=== PATIENT | female | born 1970 | race Caucasian/White ===

== ENCOUNTER 2017-05-10 13:32 | Emergency (ER) | payer OTHER ==
[~2017-05-10] VITALS: Ht 172.7 cm; Wt 90.0 kg
[2017-05-10 13:41] VITALS: BP 138/99; PULSE 108; RESP 16; TEMP 98.5; O2SAT 95
[2017-05-10 15:19] VITALS: BP 159/100; PULSE 101; RESP 20; O2SAT 97
--- NOTE | 2017-05-10 15:57 | PD ---
HPI Chief Complaint: Back/ Neck Pain or Injury Time Seen by Provider: 15:04 Travel History International Travel<30 days: No Contact w/Intl Traveler<30days: No Traveled to known affect area: No History of Present Illness HPI 47-year-old female presents to the emergency department via EMS with complaint of mid to lower back pain that she woke up with this morning. She has chronic mid to lower back pain and has had worsening of back pain since July with laminectomy in September. Said she woke up this morning in excruciating pain. Denies any recent injury. Reports radiation of pain to her left rib cage and this is normal for exacerbation of her pain. She denies chest pain, shortness of breath, abdominal pain. Report vomiting twice today. Denies encopresis, incontinence, saddle anesthesias. Reports normal urine and stool. Denies dysuria. Reports being ambulatory. Denies IV drug use or cancer. Rates pain 10/10. Usually takes Flexeril and Motrin for her chronic back pain, but ran out yesterday. Pain is constant. Worse with movement. Nothing makes it better. Describes it as "feels like someone shoved a janeth of her ass and along the spine." Her neurosurgeons are Dr. Carrera and Dr. Langston in [place]. She has no primary care provider. Allergies to Band-Aids. History of chronic back pain, kidney stones, VT, stroke, hypertension. Has no other medical complaints. No other modifying factors or associated signs and symptoms. PFSH Past Medical History Cerebrovascular Accident: Yes Herniated Disk: Yes Musculoskeletal: Yes (FUSED DISCS & JANETH IN HER SPINE) Myocardial Infarction: Yes Tetanus Vaccination: Unknown ?: Not Social History Alcohol Use: No Tobacco Use: No Substance Use: No Allergies-Medications (Allergen,Severity, Reaction): Uncoded Allergies: BANDAID (Allergy, Intermediate, Irritation, 05/10/17) STATES SKIN EMACERATES(?) UNDER THE GLUE OF THE BANDAID Reported Meds & Prescriptions Reported Meds & Active Scripts Active Flexeril (Cyclobenzaprine HCl) 10 Mg Tab 10 Mg PO TID Ibuprofen 800 Mg Tab 800 Mg PO Q6HR PRN Review of Systems Except as stated in HPI: all other systems reviewed are Neg Physical Exam Narrative GENERAL: Well-nourished, well-developed patient, in no acute distress ; afebrile, nontoxic-appearing SKIN: Warm and dry. Surgical scar noted to midline thoracic spine. Scabbed wounds noted to the right thoracic region of the back and the patient states it is from a heating pad, which she says she is thrown away. No signs of infection. HEAD: Atraumatic. Normocephalic. EYES: Pupils equal and round. No scleral icterus. No injection or drainage. ENT: Mucosa pink and moist. Airway patent. NECK: Trachea midline. CARDIOVASCULAR: Regular rate. RESPIRATORY: No accessory muscle use. GASTROINTESTINAL: Obese. MUSCULOSKELETAL: Bilateral lower extremities supple and non-tense with 2+ pedal pulses and sensory intact; with full range of motion and 5/5 strength. 2 + DTRs bilaterally. Active dorsiflexion and extension of bilateral feet. Bilateral straight leg raise is positive for low back pain. Ambulatory in room with guarded gait. Sitting up in bed at 90. No obvious deformities. No clubbing. No cyanosis. No edema. BACK: Midline point tenderness on palpation of the thoracic spine. No obvious deformities. NEUROLOGICAL: Awake and alert. Oriented 3. No obvious cranial nerve deficits. Motor grossly within normal limits. Normal speech. Moves all extremities. 5/5 strength to all extremities. Sensory intact. PSYCHIATRIC: Appropriate mood and affect; insight and judgment normal. Data Data Last Documented VS Vital Signs Date Time Temp Pulse Resp B/P (MAP) Pulse Ox O2 Delivery O2 Flow Rate FiO2 05/10/17 15:19 101 20 159/100 (119) 97 05/10/17 13:41 98.5 Orders Orders Electrocardiogram (05/10/17 15:20) Ketorolac Inj (Toradol Inj) (05/10/17 16:00) Orphenadrine Inj (Norflex Inj) (05/10/17 16:00) Ed Discharge Order (05/10/17 17:01) [facility] Medical Decision Making Medical Screen Exam Complete: Yes Emergency Medical Condition: Yes Medical Record Reviewed: Yes Differential Diagnosis Acute exacerbation of chronic back pain, chronic back pain, muscle spasms of back Narrative Course 47-year-old female with chronic mid and low back pain. She arrived via EMS. She woke up this morning with increased pain. Denies new or recent injury. Says she ran out of her Flexeril yesterday and feels like her back is spasming and radiating to her left rib cage area, which is normal for her muscle spasm exacerbations. She is neurologically intact. She was able to get up at the side of the bed and ambulate with a guarded gait. She has history of spinal surgery and there is a scar to her midline thoracic spine. Patient has a neurosurgeon in [place]. She has been told to follow-up with pain management. I discussed the patient with Dr. Costello and he agrees with my plan of care. Toradol and Norflex ordered. 1650: On reexamination patient reports improvement in the back pain. Rates pain 6/10. Flexeril and ibuprofen prescribed for home. Instructed patient to follow-up with pain management. Instructed patient to follow up with primary care provider. Patient verbalizes understanding and agreement with treatment plan. Patient is medically cleared and stable for discharge. Discussed reasons to return to the emergency department. Patient agrees with treatment plan. The patients vital signs are stable and the patient is stable for outpatient follow-up and treatment. Patient discharged home, stable and in no acute distress. Diagnosis Primary Impression: Chronic mid back pain Qualified Codes: M54.6 - Pain in thoracic spine; G89.29 - Other chronic pain Additional Impressions: Chronic low back pain Qualified Codes: M54.5 - Low back pain; G89.29 - Other chronic pain Muscle spasm of back Referrals: Pain Management Primary Care Physician Patient Instructions: Chronic Back Pain (ED), General Instructions, Muscle Spasm (ED) Additional Instructions: Tylenol or ibuprofen as directed and as needed for pain Flexeril as prescribed and as needed for muscle spasms Heating pad and/or ice to affected area to reduce pain Avoid aggravating activities; increase activity as tolerated Follow-up with primary care provider Return to emergency department immediately with worsening of symptoms Med/Other Pt SpecificInfo: Prescription(s) given Scripts Cyclobenzaprine (Flexeril) 10 Mg Tab 10 MG PO TID for Muscle Spasm, #30 TAB 0 Refills Prov: Swati Lopez 05/10/17 Ibuprofen (Ibuprofen) 800 Mg Tab 800 MG PO Q6HR Y for PAIN, #30 TAB 0 Refills Prov: Swati Lopez 05/10/17 Disposition: 01 DISCHARGE HOME Condition: Stable Swati Lopez May 10, 2017 15:57
[2017-05-10] MEDS ORDERED: ORPHENADRINE INJ 60 MG/2 ML AMP IM ONE (16:00)
[2017-05-10] MEDS ORDERED: KETOROLAC TROMETHAMINE 60 MG/2 ML (IM) VIAL IM ONE (16:00)
[2017-05-10] MEDS ORDERED: IBUP1TAB7 PO (17:00)
[2017-05-10] MEDS ORDERED: CYCL10TA PO (17:00)
[2017-05-10 17:25] VITALS: BP 157/98
--- NOTE | 2017-05-11 12:14 | EKG ---
Date Performed: 05/10/2017 Time Performed: 15:20:22 PTAGE: 47 years EKG: SINUS TACHYCARDIA POSSIBLE LEFT ATRIAL ENLARGEMENT POSSIBLE LEFT VENTRICULAR HYPERTROPHY AB NORMAL ECG NO PREVIOUS TRACING DOCTOR: Aleksandr Reza Interpretating Date/Time 05/11/2017 12:12:50
== END 2017-05-10 19:36 | disposition home or self-care (01) ==
LOC: NEPD 13:32 → NEDAMB 19:36
DX: M54.6 Pain in thoracic spine (principal); M54.5 Low back pain; G89.29 Other chronic pain; M62.830 Muscle spasm of back; R00.0 Tachycardia, unspecified; R94.31 Abnormal electrocardiogram [ECG] [EKG]; I10 Essential (primary) hypertension; I25.2 Old myocardial infarction; Z86.73 Personal history of transient ischemic attack (TIA), and cerebral infarction without residual deficits
CPT/HCPCS: 93005; 96372; 99283; J1885; J2360

== ENCOUNTER 2017-05-21 00:50 | Observation (INO) | payer OTHER ==
[2017-05-21] VITALS (9 sets, daily range): BP systolic 118–171; BP diastolic 68–111; PULSE 86–105; RESP 16–18; TEMP 97.8–98.5; O2SAT 91–95
[~2017-05-21] VITALS: Ht 162.6 cm; Wt 92.7 kg
[~2017-05-21 00:50] MED LIST: IBUP1TAB7 PO
[2017-05-21] MEDS ORDERED: SENNOSIDES 8.6 MG TAB PO PRN (02:30)
[2017-05-21] MEDS ORDERED: ONDANSETRON HCL 4 MG/2 ML VIAL IVP PRN (02:30)
[2017-05-21] MEDS ORDERED: SODIUM CHLORIDE 0.9% FLUSH 10 ML FLUSH IV FLUSH PRN (02:30)
[2017-05-21] MEDS ORDERED: NALOXONE HCL 0.4 MG/ML AMP IV PUSH PRN (02:30)
[2017-05-21] MEDS ORDERED: MAGNESIUM HYDROXIDE SUSP 30 ML CUP PO PRN (02:30)
[2017-05-21] MEDS ORDERED: Vancomycin Consult Pharmacy 1 EA OTHER SCH (02:30)
[2017-05-21] MEDS ORDERED: BISACODYL 10 MG SUPP RECTAL PRN (02:30)
[2017-05-21] MEDS ORDERED: ACETAMINOPHEN 325 MG TAB PO PRN (02:30)
[2017-05-21] MEDS ORDERED: LACTULOSE SYRUP 20 GM/30 ML CUP PO PRN (02:30)
[2017-05-21] MEDS ORDERED: PIPERACIL-TAZO 3.375 GM PREMIX 50 ML IV SCH (03:00)
--- NOTE | 2017-05-21 04:11 | HHI.HP ---
[facility] Ad[facility] Diagnosis Diagnoses: Chief Complaint: back pain Travel History International Travel<30 Days: No Contact w/Intl Traveler <30 Da: No History of Present Illness 47 y/o female with a history of HTN, heart murmer, kidney stones, and chronic back pain presented to the ED with Increasing pain since back surgery in September and a fall at home. Today she was getting out of bed today and she slid to the ground and landed on her but and felt severe pain up her spine. She states the mid back pain is constant, sharp, 7/10 with radiation up her spine, with numbness in both legs, movement makes it worse, pain medication is helping some. She states she had a 101.1 fever at home, denies chills. Recent illness of a cough 2 weeks, no dental infections noted, UTI 2 weeks ago which required antibiotics. Denies chest pain, sob or urinary/ bowel incontinence. Dr. Langston and Dr. Tesfaye- surgeons Review of Systems Except as stated in HPI: all other systems reviewed are Neg Past Family Social History Past Medical History HTN heart murmer kidney stones chronic back pain Past Surgical History Rods in back Right knee arthroscopy Thoracic back surgery Tonsillectomy Reported Medications Reported Meds & Active Scripts Active Ibuprofen 800 Mg Tab 800 Mg PO Q6HR PRN Allergies: Coded Allergies: cyclobenzaprine (Verified Allergy, Severe, Hallucinations, 05/20/17) Uncoded Allergies: BANDAID (Allergy, Intermediate, Irritation, 05/10/17) STATES SKIN EMACERATES(?) UNDER THE GLUE OF THE BANDAID Active Ordered Medications Current Medications Medications (Trade) Dose Ordered Sig/Pricila Route Start Time Stop Time Status Last Admin (NS Flush) 2 ml UNSCH PRN IV FLUSH 05/21/17 02:30 (NS Flush) 2 ml BID IV FLUSH 05/21/17 09:00 (Tylenol) 650 mg Q4H PRN PO 05/21/17 02:30 (Zofran Inj) 4 mg Q6H PRN IVP 05/21/17 02:30 (Narcan Inj) 0.4 mg UNSCH PRN IV PUSH 05/21/17 02:30 (Libia-Colace) 1 tab BID PO 05/21/17 09:00 (Milk Of Magnesia Liq) 30 ml Q12H PRN PO 05/21/17 02:30 (Senokot) 17.2 mg Q12H PRN PO 05/21/17 02:30 (Dulcolax Supp) 10 mg DAILY PRN RECTAL 05/21/17 02:30 (Lactulose Liq) 30 ml DAILY PRN PO 05/21/17 02:30 Pharmacy Profile Note 0 ml @ 0 mls/hr UNSCH OTHER 05/21/17 02:30 UNV Piperacillin Sod/ Tazobactam Sod 50 ml @ 100 mls/hr Q6H IV 05/21/17 03:00 (Morphine Inj) 2 mg Q3H PRN IV PUSH 05/21/17 02:30 Family History Mom: Heart disease, Dad: Heart disease, DM, Social History Denies any Tobacco, alcohol or illicit drug use Physical Exam Physical Exam GENERAL: This is a well-nourished, well-developed patient, in moderate amount of back pain. SKIN: No rashes, ecchymoses or lesions. Cool and dry. HEAD: Atraumatic. Normocephalic. EYES: Pupils equal round and reactive. Extraocular motions intact. No scleral icterus. No injection or drainage. ENT: Nose without bleeding, purulent drainage or septal hematoma. Airway patent. NECK: Trachea midline. No JVD or lymphadenopathy. CARDIOVASCULAR: Regular rate and rhythm without murmurs, gallops, or rubs. RESPIRATORY: Decreased breath sounds in bases, expiratory wheezing GASTROINTESTINAL: Abdomen soft, non-tender, nondistended. No guarding. MUSCULOSKELETAL: Extremities without clubbing, cyanosis, or edema. mid/ lower back tenderness. No calf tenderness. NEUROLOGICAL: Awake and alert. 2 out of 5 muscle strength in bilateral lower extremities. Normal speech. Caprini VTE Risk Assessment Caprini VTE Risk Assessment: Mod/High Risk (score >= 2) Caprini Risk Assessment Model Point Value = 1 Point Value = 2 Point Value = 3 Point Value = 5 Age 41-60 Minor surgery BMI > 25 kg/m2 Swollen legs Varicose veins or History of unexplained or recurrent spontaneous Oral contraceptives or hormone replacement Sepsis (< 1 month) Serious lung disease, including pneumonia (< 1 month) Abnormal pulmonary function Acute myocardial infarction Congestive heart failure (< 1 month) History of inflammatory bowel disease Medical patient at bed rest Age 61-74 Arthroscopic surgery Major open surgery (> 45 min) Laparoscopic surgery (> 45 min) Malignancy Confined to bed (> 72 hours) Immobilizing plaster cast Central venous access Age >= 75 History of VTE Family history of VTE Factor V Leiden Prothrombin [id number] Lupus anticoagulant Anticardiolipin antibodies Elevated serum homocysteine Heparin-induced thrombocytopenia Other congenital or acquired thrombophilia Stroke (< 1 month) Elective arthroplasty Hip, pelvis, or leg fracture Acute spinal cord injury (< 1 month) Prophylaxis Regimen Total Risk Factor Score Risk Level Prophylaxis Regimen 0-1 Low Early ambulation 2 Moderate Order ONE of the following: *Sequential Compression Device (SCD) *Heparin 5000 units SQ BID 3-4 Higher Order ONE of the following medications: *Heparin 5000 units SQ TID *Enoxaparin/Lovenox 40 mg SQ daily (WT < 150 kg, CrCl > 30 mL/min) *Enoxaparin/Lovenox 30 mg SQ daily (WT < 150 kg, CrCl > 10-29 mL/min) *Enoxaparin/Lovenox 30 mg SQ BID (WT < 150 kg, CrCl > 30 mL/min) AND/OR *Sequential Compression Device (SCD) 5 or more Highest Order ONE of the following medications: *Heparin 5000 units SQ TID (Preferred with Epidurals) *Enoxaparin/Lovenox 40 mg SQ daily (WT < 150 kg, CrCl > 30 mL/min) *Enoxaparin/Lovenox 30 mg SQ daily (WT < 150 kg, CrCl > 10-29 mL/min) *Enoxaparin/Lovenox 30 mg SQ BID (WT < 150 kg, CrCl > 30 mL/min) AND *Sequential Compression Device (SCD) Assessment and Plan Problem List: (1) Epidural abscess ICD Code: G06.2 - Extradural and subdural abscess, unspecified Status: Acute (2) UTI (urinary tract infection) ICD Code: N39.0 - Urinary tract infection, site not specified Status: Acute (3) Pneumonia ICD Code: J18.9 - Pneumonia, unspecified organism Status: Acute Assessment and Plan 47 y/o female with a history of HTN, heart murmer, kidney stones, and chronic back pain presented to the ED with Increasing pain since back surgery in September and a fall at home. Possible epidural abscess, chronic back pain, s/p fall Abdomen CT reviewed and shows Postsurgical changes in the lower thoracic spine status post corpectomy and fusion. Extensive paravertebral soft tissue swelling is noted in this region the findings are concerning for acute infection. ESR 47, CRP 20 -MRI T spine ordered to r/o abscess -Pain management with IV morphine -PT eval and treat -Vancomycin and cefepime -Blood cultures ordered -Consult neurosurgery if needed once MRI results -Cont. home muscle relaxer Pneumonia Chest x ray reviewed and shows bilateral base consolidation -IV antibiotics as above -Duonebs scheduled -Incentive spirometer ordered UTI UA shows moderate leukocyte esterase -Cont antibiotics as above -IVF for hydration -Urine culture pending Hypertension, chronic, unstable, not on any home medications -Suspect pain related, Vasotec prn -Monitor vitals DVT prophylaxis: SCDs Discussed Condition With Patient and ED Liliane Bucio May 21, 2017 04:11
[2017-05-21] MEDS: MORPHINE SULFATE 2 MG/ML SYRINGE IV PUSH PRN ×2 (04:36→11:14)
[2017-05-21] MEDS ORDERED: METH500T3 PO (04:40)
[2017-05-21] MEDS ORDERED: VANCOMYCIN INJ 1,250 MG in SODIUM CHLOR 0.9% 250 ML INJ 250 ML IV ONE (05:00)
[2017-05-21] MEDS: CEFEPIME INJ 2,000 MG in SODIUM CHLORIDE 0.9% INJ 100 ML IV SCH ×2 (06:00→17:11)
[2017-05-21 06:23] LABS: AUTOMATED NEUTROPHIL # 5.7 TH/MM3 (1.8-7.7); BASOPHIL % 0.2 % (0.0-2.0); HEMATOCRIT 29.8 % (35.0-46.0); HEMOGLOBIN 9.7 GM/DL (11.6-15.3); LYMPH % 12.5 % (9.0-44.0); LYMPHOCYTE # 0.8 TH/MM3 (1.0-4.8); MEAN CELL VOLUME 73.1 FL (80.0-100.0); MEAN CORPUSCULAR HEMOGLOBIN 23.8 PG (27.0-34.0); MEAN CORPUSCULAR HGB CONC 32.5 % (32.0-36.0); MEAN PLATELET VOLUME 7.2 FL (7.0-11.0); MONOCYTE # 0.1 TH/MM3 (0-0.9); NEUT % 85.3 % (16.0-70.0); PLATELET COUNT 524 TH/MM3 (150-450); RED BLOOD COUNT 4.07 MIL/MM3 (4.00-5.30); RED CELL DISTRIBUTION WIDTH 16.6 % (11.6-17.2); WHITE BLOOD COUNT 6.7 TH/MM3 (4.0-11.0)
[2017-05-21 06:46] LABS: BICARBONATE 30.5 MEQ/L (21.0-32.0); CALCIUM 9.1 MG/DL (8.5-10.1); CREATININE 0.66 MG/DL (0.50-1.00)
[2017-05-21] MEDS: RESP: ALBUTEROL 2.5 MG/IPRATROPIUM 0.5 MG NEB (SCH) NEB ×5 (07:33→23:38)
[2017-05-21] MEDS: DOCUSATE SODIUM 50 MG/SENNA 8.6 MG TAB PO SCH ×2 (09:00→21:26)
[2017-05-21] MEDS: METHOCARBAMOL 500 MG TAB PO SCH ×3 (11:12→18:10)
[2017-05-21] MEDS: SODIUM CHLORIDE 0.9% FLUSH 10 ML FLUSH IV FLUSH SCH ×2 (11:13→21:26)
[2017-05-21] MEDS: ACETAMINOPHEN/HYDROcodone 325 MG/7.5 MG TAB PO PRN (14:21)
[2017-05-21] MEDS: guaiFENesin/DEXTROMETHORPHAN 200 MG/20 MG/10 ML CUP PO PRN (15:06)
--- NOTE | 2017-05-21 15:13 | RADRPT ---
EXAM DATE/TIME: 05/21/2017 13:09 [place] COMPARISON: SPINE THORACIC AP/LAT/SW (3VW), May 20, 2017, 15:44. INDICATIONS : Abscess. CONTRAST: 16 cc Omniscan (gadodiamide) IV MEDICAL HISTORY : Stroke Myocardial infarction. SURGICAL HISTORY : Fusion, thoracic. ENCOUNTER: Initial ACUITY: 3 day PAIN SCORE: 7/10 LOCATION: t-spine TECHNIQUE: Multiplanar multisequence MRI of the thoracic spine was performed. FINDINGS: Patient is status post transpedicular fixation and fusion T5-T12 with cage from about T8 to about the T11. This hardware is causing extensive artifact. There is no cord compression. There is no extra -axial fluid present. Minimal induration is present the operative site without defined fluid collect ion. There is minimal increased signal within the thoracic cord at T7-T8. CONCLUSION: Extensive artifact, no defined abscess. Paulino Bonilla MD FACR on May 21, 2017 at 15:06 Board Certified Radiologist. This report was verified electronically.
[2017-05-21] MEDS ORDERED: GADODIAMIDE PF 287 MG/ML 20 ML VIAL (for RAD MRI) IVCONTRAST ONE (15:18)
[2017-05-21] MEDS: VANCOMYCIN INJ 1,250 MG in SODIUM CHLOR 0.9% 250 ML INJ 250 ML IV SCH (18:10)
--- NOTE | 2017-05-21 20:11 | HHI.PR ---
Addendum to Inpatient Note Addendum Reason: Additional Documentation Additional Information The patient is awake and alert. States breathing status is improving. Denies wheezing. Denies fevers or chills. Lung exam shows decreased bilateral breath sounds. No rales or crackles auscultated. MRI of the thoracic spine showed extensive artifact but no defined abscess. Continue IV antibiotics for community-acquired pneumonia. Continue duo nebs and continue to provide supplemental oxygen to keep oxygen saturation more than 92%. Blood cultures pending. Urine culture showed mixed dalton concordant with contamination. Blood pressure stable. Joo Covington MD May 21, 2017 20:11
[2017-05-21] MEDS: hydrOXYzine HCL 10 MG TAB PO PRN (23:07)
[2017-05-22] VITALS (9 sets, daily range): BP systolic 125–164; BP diastolic 82–97; PULSE 76–114; RESP 17–19; TEMP 97.5–100.5; O2SAT 92–97
[2017-05-22] MEDS: ACETAMINOPHEN/HYDROcodone 325 MG/5 MG TAB PO PRN ×2 (00:12→05:03)
[2017-05-22] MEDS: guaiFENesin/DEXTROMETHORPHAN 200 MG/20 MG/10 ML CUP PO PRN (01:26)
[2017-05-22] MEDS: RESP: ALBUTEROL 2.5 MG/IPRATROPIUM 0.5 MG NEB (SCH) NEB ×6 (04:21→23:28)
[2017-05-22] MEDS ORDERED: PHARMACY ORDERED LAB ONE (04:45)
[2017-05-22] MEDS: CEFEPIME INJ 2,000 MG in SODIUM CHLORIDE 0.9% INJ 100 ML IV SCH ×2 (04:57→20:10)
[2017-05-22 06:23] LABS: CREATININE 0.85 MG/DL (0.50-1.00)
[2017-05-22 06:24] LABS: VANCOMYCIN TROUGH 16.5 MCG/ML (5.0-10.0)
[2017-05-22] MEDS: VANCOMYCIN INJ 1,250 MG in SODIUM CHLOR 0.9% 250 ML INJ 250 ML IV SCH ×2 (06:32→06:43)
[2017-05-22] MEDS: DOCUSATE SODIUM 50 MG/SENNA 8.6 MG TAB PO SCH ×2 (09:00→21:48)
[2017-05-22] MEDS: SODIUM CHLORIDE 0.9% FLUSH 10 ML FLUSH IV FLUSH SCH ×2 (09:00→21:48)
[2017-05-22] MEDS: ACETAMINOPHEN/HYDROcodone 325 MG/7.5 MG TAB PO PRN ×3 (09:13→20:09)
[2017-05-22] MEDS: METHOCARBAMOL 500 MG TAB PO SCH ×3 (09:13→20:09)
[2017-05-22 12:11] LABS: AST (GOT) 17 U/L (15-37); BICARBONATE 25.5 MEQ/L (21.0-32.0); CALCIUM 8.7 MG/DL (8.5-10.1); CHLORIDE 99 MEQ/L (98-107); CREATININE 0.73 MG/DL (0.50-1.00); GLOMERULAR FILTRATION RATE 85 ML/MIN (>89); GLUCOSE,RANDOM 83 MG/DL (74-106); MAGNESIUM 1.9 MG/DL (1.5-2.5); SODIUM (NA) 134 MEQ/L (136-145)
[2017-05-22 12:12] LABS: ALT (GPT) 10 U/L (10-53); AUTOMATED NEUTROPHIL # 7.6 TH/MM3 (1.8-7.7); BASOPHIL # 0.1 TH/MM3 (0-0.2); BASOPHIL % 0.7 % (0.0-2.0); BLOOD UREA NITROGEN 11 MG/DL (7-18); EOSINOPHIL # 0.2 TH/MM3 (0-0.4); EOSINOPHIL % 1.7 % (0.0-4.0); HEMATOCRIT 30.6 % (35.0-46.0); HEMOGLOBIN 9.6 GM/DL (11.6-15.3); LYMPH % 23.2 % (9.0-44.0); LYMPHOCYTE # 2.6 TH/MM3 (1.0-4.8); MEAN CORPUSCULAR HEMOGLOBIN 23.2 PG (27.0-34.0); MEAN CORPUSCULAR HGB CONC 31.4 % (32.0-36.0); MEAN PLATELET VOLUME 7.7 FL (7.0-11.0); MONO % 6.4 % (0.0-8.0); MONOCYTE # 0.7 TH/MM3 (0-0.9); PHOSPHORUS 2.9 MG/DL (2.5-4.9); PLATELET COUNT 469 TH/MM3 (150-450); RED BLOOD COUNT 4.13 MIL/MM3 (4.00-5.30); RED CELL DISTRIBUTION WIDTH 16.6 % (11.6-17.2); WHITE BLOOD COUNT 11.2 TH/MM3 (4.0-11.0)
[2017-05-22 12:14] LABS: ALKALINE PHOSPHATASE 87 U/L (45-117); TOTAL BILIRUBIN ADULT 0.2 MG/DL (0.2-1.0); TOTAL PROTEIN 7.3 GM/DL (6.4-8.2)
[2017-05-22] MEDS: hydrOXYzine HCL 10 MG TAB PO PRN ×2 (14:12→22:12)
--- NOTE | 2017-05-22 16:51 | HHI.PR ---
Subjective Remarks Still feels sob but respiratoty status much improved Objective Vitals Vital Signs Date Time Temp Pulse Resp B/P (MAP) Pulse Ox O2 Delivery O2 Flow Rate FiO2 05/22/17 16:00 98.2 106 19 149/97 (114) 93 05/22/17 13:05 97 05/22/17 12:00 98.6 89 17 132/89 (103) 92 05/22/17 08:00 97.5 76 18 152/94 (113) 93 05/22/17 04:49 98.0 91 18 125/82 (96) 93 05/22/17 03:12 18 05/22/17 03:01 94 05/22/17 00:00 100 05/21/17 23:49 98.3 99 18 118/68 (85) 92 05/21/17 19:44 94 I/O 05/21/17 05/21/17 05/21/17 05/22/17 05/22/17 05/22/17 07:00 15:00 23:00 07:00 15:00 23:00 Intake Total 100 ml Balance 100 ml Intake IV Total 100 ml Result Diagram: 05/22/17 1059 05/22/17 1059 Imaging Last Impressions Thoracic Spine MRI 05/21/17 0000 Signed Impressions: Service Date/Time: Sunday, May 21, 2017 13:09 - CONCLUSION: Extensive artifact, no defined abscess. Paulino Bonilla MD FACR Medications and IVs Current Medications Medications (Trade) Dose Ordered Sig/Pricila Route Start Time Stop Time Status Last Admin (NS Flush) 2 ml UNSCH PRN IV FLUSH 05/21/17 02:30 (NS Flush) 2 ml BID IV FLUSH 05/21/17 09:00 05/21/17 21:26 (Tylenol) 650 mg Q4H PRN PO 05/21/17 02:30 (Zofran Inj) 4 mg Q6H PRN IVP 05/21/17 02:30 (Narcan Inj) 0.4 mg UNSCH PRN IV PUSH 05/21/17 02:30 (Libia-Colace) 1 tab BID PO 05/21/17 09:00 (Milk Of Magnesia Liq) 30 ml Q12H PRN PO 05/21/17 02:30 (Senokot) 17.2 mg Q12H PRN PO 05/21/17 02:30 (Dulcolax Supp) 10 mg DAILY PRN RECTAL 05/21/17 02:30 (Lactulose Liq) 30 ml DAILY PRN PO 05/21/17 02:30 Pharmacy Profile Note 0 ml @ 0 mls/hr UNSCH OTHER 05/21/17 02:30 (Morphine Inj) 2 mg Q3H PRN IV PUSH 05/21/17 02:30 05/21/17 11:14 (Duoneb Neb) 1 ampule Q4HR NEB NEB 05/21/17 08:00 05/22/17 11:26 Cefepime HCl 2000 mg/Sodium Chloride 100 ml @ 200 mls/hr Q12H IV 05/21/17 06:00 05/22/17 04:57 (Robaxin) 500 mg TID PO 05/21/17 09:00 05/22/17 14:13 (Vasotec Inj) 1.25 mg Q6H PRN IV PUSH 05/21/17 05:00 Vancomycin HCl 1250 mg/Sodium Chloride 262.5 ml @ 250 mls/hr Q12H IV 05/21/17 17:00 05/22/17 06:32 (Cascade 5-325 Mg) 1 tab Q4H PRN PO 05/21/17 11:45 05/22/17 05:03 (Cascade 7.5-325 Mg) 1 tab Q4H PRN PO 05/21/17 11:45 05/22/17 15:38 (Atarax) 10 mg Q8H PRN PO 05/21/17 11:45 05/22/17 14:12 (Robitussin Dm 200-20 Mg/10 ml Liq) 10 ml Q6H PRN PO 05/21/17 14:15 05/22/17 01:26 Miscellaneous Information SPECIFIC LAB TO BE DRAWN:VANCOMYCIN TROUGH DATE TO... ONCE ONCE .XX 05/24/17 04:45 05/24/17 04:46 A/P Problem List: (1) Epidural abscess ICD Code: G06.2 - Extradural and subdural abscess, unspecified Status: Acute (2) UTI (urinary tract infection) ICD Code: N39.0 - Urinary tract infection, site not specified Status: Acute (3) Pneumonia ICD Code: J18.9 - Pneumonia, unspecified organism Status: Acute Assessment and Plan 47 y/o female with a history of HTN, heart murmer, kidney stones, and chronic back pain presented to the ED with Increasing pain since back surgery in September and a fall at home. Chronic back pain - Spinal abscess r/o by MRI Abdomen CT reviewed and shows Postsurgical changes in the lower thoracic spine status post corpectomy and fusion. Extensive paravertebral soft tissue swelling is noted in this region the findings are concerning for acute infection. ESR 47, CRP 20 -MRI T spine ordered to r/o abscess -Pain management with IV morphine -PT eval and treat -Vancomycin and cefepime -Blood cultures ordered -Consult neurosurgery if needed once MRI results -Cont. home muscle relaxer 05/22 Pt recommends SNF. Pain controlled. Pneumonia Chest x ray reviewed and shows bilateral base consolidation -IV antibiotics as above -Duonebs scheduled -Incentive spirometer ordered 05/22 On room air. Will order a respiratory walk test. UTI UA shows moderate leukocyte esterase -Cont antibiotics as above -IVF for hydration -Urine culture cw contamination. UTI ruled out. Hypertension, chronic, unstable, not on any home medications -Suspect pain related, Vasotec prn -Monitor vitals DVT prophylaxis: Joo Soliz MD May 22, 2017 16:51
[2017-05-23] VITALS (10 sets, daily range): BP systolic 124–162; BP diastolic 81–99; PULSE 93–103; RESP 18–20; TEMP 98.1–98.6; O2SAT 90–98
[2017-05-23] MEDS: RESP: ALBUTEROL 2.5 MG/IPRATROPIUM 0.5 MG NEB (SCH) NEB ×5 (03:20→19:36)
[2017-05-23] MEDS: ACETAMINOPHEN/HYDROcodone 325 MG/7.5 MG TAB PO PRN ×4 (04:14→21:29)
[2017-05-23] MEDS: VANCOMYCIN INJ 1,250 MG in SODIUM CHLOR 0.9% 250 ML INJ 250 ML IV SCH (04:17)
[2017-05-23] MEDS: CEFEPIME INJ 2,000 MG in SODIUM CHLORIDE 0.9% INJ 100 ML IV SCH ×2 (06:39→19:04)
[2017-05-23] MEDS: DOCUSATE SODIUM 50 MG/SENNA 8.6 MG TAB PO SCH ×2 (09:00→21:29)
[2017-05-23] MEDS: METHOCARBAMOL 500 MG TAB PO SCH ×3 (09:45→19:04)
[2017-05-23] MEDS: SODIUM CHLORIDE 0.9% FLUSH 10 ML FLUSH IV FLUSH SCH ×2 (09:45→21:29)
[2017-05-23] MEDS: ENALAPRILAT 1.25 MG/ML VIAL IV PUSH PRN (11:20)
[2017-05-23 12:57] LABS: HEMATOCRIT 30.8 % (35.0-46.0); HEMOGLOBIN 9.9 GM/DL (11.6-15.3); MEAN CELL VOLUME 74.2 FL (80.0-100.0); MEAN CORPUSCULAR HEMOGLOBIN 23.9 PG (27.0-34.0); MEAN CORPUSCULAR HGB CONC 32.2 % (32.0-36.0); MEAN PLATELET VOLUME 7.5 FL (7.0-11.0); PLATELET COUNT 557 TH/MM3 (150-450); RED BLOOD COUNT 4.16 MIL/MM3 (4.00-5.30); RED CELL DISTRIBUTION WIDTH 16.6 % (11.6-17.2); WHITE BLOOD COUNT 7.7 TH/MM3 (4.0-11.0)
[2017-05-23 13:17] LABS: BICARBONATE 28.9 MEQ/L (21.0-32.0); CALCIUM 8.6 MG/DL (8.5-10.1); CREATININE 0.58 MG/DL (0.50-1.00)
[2017-05-23] MEDS ORDERED: POTASSIUM CHLORIDE 10 MEQ CONTROLLED RELEASE TAB PO ONE (14:15)
--- NOTE | 2017-05-23 16:21 | HHI.PR ---
Subjective Remarks Patient states still coughing frequently. Denies fevers or chills On room air K low Objective Vitals Vital Signs Date Time Temp Pulse Resp B/P (MAP) Pulse Ox O2 Delivery O2 Flow Rate FiO2 05/23/17 15:28 136/94 (108) 05/23/17 15:21 98.6 99 18 93 05/23/17 10:55 98.1 103 20 162/99 (120) 95 05/23/17 07:59 93 05/23/17 07:48 98.5 94 18 136/81 (99) 94 05/23/17 05:15 15 05/23/17 05:06 98.1 94 18 138/84 (102) 90 05/23/17 04:00 93 05/23/17 00:53 98.4 98 18 135/91 (106) 98 05/22/17 23:29 93 21 05/22/17 20:03 100.5 114 18 164/96 (118) 94 I/O 05/22/17 05/22/17 05/22/17 05/23/17 05/23/17 05/23/17 06:59 14:59 22:59 06:59 14:59 22:59 Intake Total 100 ml 900 ml Balance 100 ml 900 ml Intake Oral 900 ml IV Total 100 ml # Voids 3 Result Diagram: 05/23/17 1237 05/23/17 1237 Imaging Last Impressions Thoracic Spine MRI 05/21/17 0000 Signed Impressions: Service Date/Time: Sunday, May 21, 2017 13:09 - CONCLUSION: Extensive artifact, no defined abscess. Paulino Bonilla MD FACR Objective Remarks AAox3 nad Lungs w decreased breath sounds at the bases otherwise clear to auscultation S1S2 RRR abdomen soft, non tender, non distended no calf edema or pain. Medications and IVs Current Medications Medications (Trade) Dose Ordered Sig/Pricila Route Start Time Stop Time Status Last Admin (NS Flush) 2 ml UNSCH PRN IV FLUSH 05/21/17 02:30 (NS Flush) 2 ml BID IV FLUSH 05/21/17 09:00 05/23/17 09:45 (Tylenol) 650 mg Q4H PRN PO 05/21/17 02:30 (Zofran Inj) 4 mg Q6H PRN IVP 05/21/17 02:30 (Narcan Inj) 0.4 mg UNSCH PRN IV PUSH 05/21/17 02:30 ([place]-Colace) 1 tab BID PO 05/21/17 09:00 (Milk Of Magnesia Liq) 30 ml Q12H PRN PO 05/21/17 02:30 (Senokot) 17.2 mg Q12H PRN PO 05/21/17 02:30 (Dulcolax Supp) 10 mg DAILY PRN RECTAL 05/21/17 02:30 (Lactulose Liq) 30 ml DAILY PRN PO 05/21/17 02:30 (Morphine Inj) 2 mg Q3H PRN IV PUSH 05/21/17 02:30 05/21/17 11:14 (Duoneb Neb) 1 ampule Q4HR NEB NEB 05/21/17 08:00 05/23/17 07:57 Cefepime HCl 2000 mg/Sodium Chloride 100 ml @ 200 mls/hr Q12H IV 05/21/17 06:00 05/23/17 06:39 (Robaxin) 500 mg TID PO 05/21/17 09:00 05/23/17 13:57 (Vasotec Inj) 1.25 mg Q6H PRN IV PUSH 05/21/17 05:00 05/23/17 11:20 ([place] 5-325 Mg) 1 tab Q4H PRN PO 05/21/17 11:45 05/22/17 05:03 ([place] 7.5-325 Mg) 1 tab Q4H PRN PO 05/21/17 11:45 05/23/17 14:32 (Atarax) 10 mg Q8H PRN PO 05/21/17 11:45 05/22/17 22:12 (Robitussin Dm 200-20 Mg/10 ml Liq) 10 ml Q6H PRN PO 05/21/17 14:15 05/22/17 01:26 A/P Problem List: (1) Epidural abscess ICD Code: G06.2 - Extradural and subdural abscess, unspecified Status: Acute (2) UTI (urinary tract infection) ICD Code: N39.0 - Urinary tract infection, site not specified Status: Acute (3) Pneumonia ICD Code: J18.9 - Pneumonia, unspecified organism Status: Acute Assessment and Plan 47 y/o female with a history of HTN, heart murmer, kidney stones, and chronic back pain presented to the ED with Increasing pain since back surgery in September and a fall at home. Chronic back pain - Spinal abscess r/o by MRI Abdomen CT reviewed and shows Postsurgical changes in the lower thoracic spine status post corpectomy and fusion. Extensive paravertebral soft tissue swelling is noted in this region the findings are concerning for acute infection. ESR 47, CRP 20 -MRI T spine ordered -spinal abscess ruled out. -Pain management with IV morphine -PT eval and treat -Started initially on vancomycin and cefepime -Blood cultures ordered -Consult neurosurgery if needed once MRI results -Cont. home muscle relaxer -Pt recommends SNF. Pain controlled. DC vancomycin. Pneumonia Chest x ray reviewed and shows bilateral base consolidation -IV antibiotics as above -Duonebs scheduled -Incentive spirometer ordered 05/22 On room air. Will order a respiratory walk test. 05/23 patient does not require oxygen at home. Continue IV cefepime, discontinue IV vancomycin. UTI UA shows moderate leukocyte esterase -Cont antibiotics as above -IVF for hydration -Urine culture cw contamination. UTI ruled out. Hypertension, chronic, unstable, not on any home medications -Suspect pain related, Vasotec prn -Monitor vitals Generalized weakness -Physical therapy consulted. Risk of therapy recommends sniffed placement, however does not have a payer source. -Will order PT twice a day during the weekends. DVT prophylaxis: SCDs Discharge Planning PT recommended SNF placement. Discharge pending clinical improvement. Joo Covington MD May 23, 2017 16:21
[2017-05-23] MEDS: hydrOXYzine HCL 10 MG TAB PO PRN (21:28)
[2017-05-24] VITALS (10 sets, daily range): BP systolic 134–225; BP diastolic 90–139; PULSE 96–113; RESP 16–20; TEMP 98–100; O2SAT 90–98
[2017-05-24] MEDS: RESP: ALBUTEROL 2.5 MG/IPRATROPIUM 0.5 MG NEB (SCH) NEB ×8 (01:01→23:34)
[2017-05-24] MEDS ORDERED: PHARMACY ORDERED LAB ONE (04:45)
[2017-05-24] MEDS: CEFEPIME INJ 2,000 MG in SODIUM CHLORIDE 0.9% INJ 100 ML IV SCH ×2 (06:32→18:54)
[2017-05-24] MEDS: SODIUM CHLORIDE 0.9% FLUSH 10 ML FLUSH IV FLUSH SCH ×2 (08:51→20:34)
[2017-05-24] MEDS: METHOCARBAMOL 500 MG TAB PO SCH ×3 (08:51→18:55)
[2017-05-24] MEDS: DOCUSATE SODIUM 50 MG/SENNA 8.6 MG TAB PO SCH ×2 (08:51→20:34)
[2017-05-24 10:09] LABS: CREATININE 0.58 MG/DL (0.50-1.00)
[2017-05-24] MEDS: ACETAMINOPHEN/HYDROcodone 325 MG/7.5 MG TAB PO PRN ×4 (10:35→22:41)
--- NOTE | 2017-05-24 11:37 | HHI.PR ---
Subjective Remarks had a low grade fever earlier. still with some cough but with no sob. has some mid-back pain. Objective Vitals Vital Signs Date Time Temp Pulse Resp B/P (MAP) Pulse Ox O2 Delivery O2 Flow Rate FiO2 05/24/17 10:31 98.4 112 16 173/95 (121) 98 157/92 (113) 05/24/17 04:05 98 05/24/17 03:20 100.0 100 18 159/93 (115) 96 05/24/17 00:03 98.1 96 18 134/90 (105) 91 05/23/17 22:29 15 05/23/17 19:34 93 21 05/23/17 19:33 98.4 101 19 124/93 (103) 93 05/23/17 15:28 136/94 (108) 05/23/17 15:21 98.6 99 18 93 I/O 05/23/17 05/23/17 05/23/17 05/24/17 05/24/17 05/24/17 07:00 15:00 23:00 07:00 15:00 23:00 # Voids 1 Result Diagram: 05/23/17 1237 05/24/17 0903 Imaging Last Impressions Thoracic Spine MRI 05/21/17 0000 Signed Impressions: Service Date/Time: Sunday, May 21, 2017 13:09 - CONCLUSION: Extensive artifact, no defined abscess. Paulino Bonilla MD FACR Objective Remarks GENERAL: This is a well-nourished, well-developed patient, in no apparent distress. CARDIOVASCULAR: Regular rate and regular rhythm without murmurs, gallops, or rubs. RESPIRATORY: Clear to auscultation. Breath sounds equal bilaterally. No wheezes , rales, or rhonchi. GASTROINTESTINAL: Abdomen soft, non-tender, nondistended. Normal, active bowel sounds MUSCULOSKELETAL: Extremities without clubbing, cyanosis, or edema. NEURO: Alert & Oriented x4 to person, place, time, situation. Moves all ext x4 Medications and IVs Inpatient Medications Acetaminophen (Tylenol) 650 mg Q4H PRN PO TEMP > 100.4; Start 05/21/17 at 02:30 Acetaminophen/ Hydrocodone Bitart ([place] 5-325 Mg) 1 tab Q4H PRN PO Pain 4-6 Last administered on 05/22/17 05:03; Start 05/21/17 at 11:45 Acetaminophen/ Hydrocodone Bitart ([place] 7.5-325 Mg) 1 tab Q4H PRN PO Pain 7- 10 Last administered on 05/24/17 10:35; Start 05/21/17 at 11:45 Albuterol/ Ipratropium (Duoneb Neb) 1 ampule Q4HR NEB NEB Last administered on 05/24/17 01:01; Start 05/21/17 at 08:00 Bisacodyl (Dulcolax Supp) 10 mg DAILY PRN RECTAL SEVERE CONSITIPATION; Start at 02:30 Cefepime HCl 2000 mg/Sodium Chloride 100 ml @ 200 mls/hr Q12H IV Last administered on 05/24/17 06:32; Start 05/21/17 at 06:00 Enalaprilat (Vasotec Inj) 1.25 mg Q6H PRN IV PUSH SBP>160, DBP>90 Last administered on 05/23/17at 11:20; Start 05/21/17 at 05:00 Guaifenesin/ Dextromethorphan (Robitussin Dm 200-20 Mg/10 ml Liq) 10 ml Q6H PRN PO COUGH Last administered on 05/22/17 01:26; Start 05/21/17 at 14:15 Hydroxyzine HCl (Atarax) 10 mg Q8H PRN PO Anxiety Last administered on 21:28; Start 05/21/17 at 11:45 Lactulose (Lactulose Liq) 30 ml DAILY PRN PO SEVERE CONSITIPATION; Start at 02:30 Magnesium Hydroxide (Milk Of Magnesia Liq) 30 ml Q12H PRN PO Mild constipation ; Start 05/21/17 at 02:30 Methocarbamol (Robaxin) 500 mg TID PO Last administered on 05/24/17at 08:51; Start 05/21/17 at 09:00 Miscellaneous Information SPECIFIC LAB TO BE DRAWN:VANCOMY... ONCE ONCE .XX Last administered on 05/22/17at 04:45; Start 05/22/17 at 04:45; Stop 05/22/17 at 04:46; Status DC Morphine Sulfate (Morphine Inj) 2 mg Q3H PRN IV PUSH BREAKTHROUGH PAIN Last administered on 05/21/17at 11:14; Start 05/21/17 at 02:30 Naloxone HCl (Narcan Inj) 0.4 mg UNSCH PRN IV PUSH SEE LABEL COMMENTS; Start at 02:30 Ondansetron HCl (Zofran Inj) 4 mg Q6H PRN IVP NAUSEA OR VOMITING; Start at 02:30 Pharmacy Profile Note 0 ml @ 0 mls/hr UNSCH OTHER ; Start 05/21/17 at 02:30; Stop 05/23/17 at 15:51; Status DC Piperacillin Sod/ Tazobactam Sod 50 ml @ 100 mls/hr Q6H IV Last administered on 05/21/17at 04:36; Start 05/21/17 at 03:00; Stop 05/21/17 at 04:48; Status DC Potassium Chloride (KCl) 30 meq ONCE ONCE PO Last administered on 05/23/17at 14 :32; Start 05/23/17 at 14:15; Stop 05/23/17 at 14:21; Status DC Senna/Docusate Sodium ([place]-Colace) 1 tab BID PO Last administered on at 08:51; Start 05/21/17 at 09:00 Sennosides (Senokot) 17.2 mg Q12H PRN PO Moderate constipation; Start 05/21/17 at 02:30 Sodium Chloride (NS Flush) 2 ml BID IV FLUSH Last administered on 05/24/17at 08: 51; Start 05/21/17 at 09:00 Vancomycin HCl 1250 mg/Sodium Chloride 262.5 ml @ 250 mls/hr Q12H IV Last administered on 05/23/17at 04:17; Start 05/21/17 at 17:00; Stop 05/23/17 at 15:46 ; Status DC A/P Problem List: (1) Epidural abscess ICD Code: G06.2 - Extradural and subdural abscess, unspecified Status: Acute (2) UTI (urinary tract infection) ICD Code: N39.0 - Urinary tract infection, site not specified Status: Acute (3) Pneumonia ICD Code: J18.9 - Pneumonia, unspecified organism Status: Acute Assessment and Plan Chronic back pain - Spinal abscess ruled out by MRI ESR 47, CRP 20 -MRI T spine ordered -spinal abscess ruled out. -continue Pain management. -PT eval and treat -Started initially on vancomycin and cefepime -Blood cultures ordered -Cont. home muscle relaxer -Pt recommends SNF. Pain controlled. Pneumonia -IV antibiotics as above -Duonebs scheduled -Incentive spirometer ordered -passed walk test. Hypertension, chronic, unstable, not on any home medications -Suspect pain related, Vasotec prn -Monitor vitals Generalized weakness -Physical therapy consulted. Risk of therapy recommends sniffed placement, however does not have a payer source. -Will order PT twice a day during the weekends. DVT prophylaxis: SCDs Discharge Planning case management to assist with dc planning to rehab. Dennis Babb MD May 24, 2017 11:37
[2017-05-24] MEDS: MORPHINE SULFATE 2 MG/ML SYRINGE IV PUSH PRN (16:19)
[2017-05-24] MEDS ORDERED: cloNIDine HCL 0.1 MG TAB PO PRN (18:30)
--- NOTE | 2017-05-24 18:48 | RADRPT ---
EXAM DATE/TIME: 05/24/2017 18:27 [place] COMPARISON: CT THORAX W/O CONTRAST, May 20, 2017, 18:09. INDICATIONS : Left sided rib pain after fall. MEDICAL HISTORY : Stroke Myocardial infarction. SURGICAL HISTORY : Fusion, thoracic. Left sided rib fusion. ENCOUNTER: Subsequent ACUITY: 4 - 6 days PAIN SCORE: 10/10 LOCATION: Bilateral chest FINDINGS: Patchy air space opacities are again noted, left more so than right and do not appear significantly c hanged from the chest CT. I don't see a large effusion. No pneumothorax. No acute bony abnormality de monstrated. Patient has had thoracic spine and left rib surgery. CONCLUSION: Persistent patchy bilateral airspace disease. Sunday Pond MD on May 24, 2017 at 18:45 Board Certified Radiologist. This report was verified electronically.
[2017-05-24] MEDS: hydrOXYzine HCL 10 MG TAB PO PRN (19:47)
[2017-05-24] MEDS: ENALAPRILAT 1.25 MG/ML VIAL IV PUSH PRN (20:34)
[2017-05-25] VITALS (8 sets, daily range): BP systolic 116–160; BP diastolic 68–96; PULSE 70–112; RESP 17–20; TEMP 97.9–99.2; O2SAT 92–98
[2017-05-25] MEDS: RESP: ALBUTEROL 2.5 MG/IPRATROPIUM 0.5 MG NEB (SCH) NEB ×2 (03:17→07:26)
[2017-05-25] MEDS: ACETAMINOPHEN/HYDROcodone 325 MG/7.5 MG TAB PO PRN ×4 (04:10→21:21)
[2017-05-25] MEDS: CEFEPIME INJ 2,000 MG in SODIUM CHLORIDE 0.9% INJ 100 ML IV SCH ×3 (08:02→17:20)
[2017-05-25] MEDS: METHOCARBAMOL 500 MG TAB PO SCH ×3 (08:56→17:21)
[2017-05-25] MEDS: SODIUM CHLORIDE 0.9% FLUSH 10 ML FLUSH IV FLUSH SCH ×2 (08:57→21:21)
[2017-05-25] MEDS: DOCUSATE SODIUM 50 MG/SENNA 8.6 MG TAB PO SCH ×2 (08:57→21:21)
--- NOTE | 2017-05-25 11:39 | HHI.PR ---
Subjective Remarks in no acute distress. had a fall last night. complaining of some pain to the left chest wall. afebrile today. Objective Vitals Vital Signs Date Time Temp Pulse Resp B/P (MAP) Pulse Ox O2 Delivery O2 Flow Rate FiO2 05/25/17 08:25 98.2 112 20 160/96 (117) 96 05/25/17 08:03 107 05/25/17 07:27 98 21 05/25/17 04:41 98.5 108 17 143/96 (112) 94 05/24/17 20:00 98 Nasal Cannula 2.00 05/24/17 19:57 98.0 107 18 168/112 (130) 95 05/24/17 18:03 104 16 225/139 (167) 90 05/24/17 16:00 98.1 99 20 143/98 (113) 93 05/24/17 12:00 99.1 113 20 139/96 (110) 96 I/O 05/24/17 05/24/17 05/24/17 05/25/17 05/25/17 05/25/17 07:00 15:00 23:00 07:00 15:00 23:00 # Voids 1 Result Diagram: 05/23/17 1237 05/24/17 0903 Imaging Last Impressions Chest X-Ray 05/24/17 0000 Signed Impressions: Service Date/Time: Wednesday, May 24, 2017 18:27 - CONCLUSION: Persistent patchy bilateral airspace disease. Sunday Pond MD Thoracic Spine MRI 05/21/17 0000 Signed Impressions: Service Date/Time: Sunday, May 21, 2017 13:09 - CONCLUSION: Extensive artifact, no defined abscess. Paulino Bonilla MD FACR Objective Remarks GENERAL: This is a well-nourished, well-developed patient, in no apparent distress. CARDIOVASCULAR: Regular rate and regular rhythm without murmurs, gallops, or rubs. RESPIRATORY: Clear to auscultation. Breath sounds equal bilaterally. No wheezes , rales, or rhonchi. GASTROINTESTINAL: Abdomen soft, non-tender, nondistended. Normal, active bowel sounds MUSCULOSKELETAL: Extremities without clubbing, cyanosis, or edema. NEURO: Alert & Oriented x4 to person, place, time, situation. Moves all ext x4 Medications and IVs Inpatient Medications Acetaminophen (Tylenol) 650 mg Q4H PRN PO TEMP > 100.4; Start 05/21/17 at 02:30 Acetaminophen/ Hydrocodone Bitart ([place] 5-325 Mg) 1 tab Q4H PRN PO Pain 4-6 Last administered on 05/22/17 05:03; Start 05/21/17 at 11:45 Acetaminophen/ Hydrocodone Bitart ([place] 7.5-325 Mg) 1 tab Q4H PRN PO Pain 7- 10 Last administered on 05/25/17 09:02; Start 05/21/17 at 11:45 Albuterol/ Ipratropium (Duoneb Neb) 1 ampule Q4HR NEB NEB Last administered on 05/25/17 07:26; Start 05/21/17 at 08:00; Stop 05/25/17 at 07:59; Status DC Amlodipine Besylate (Norvasc) 10 mg DAILY PO Last administered on 05/25/17 08: 56; Start 05/24/17 at 18:30 Bisacodyl (Dulcolax Supp) 10 mg DAILY PRN RECTAL SEVERE CONSITIPATION; Start at 02:30 Cefepime HCl 2000 mg/Sodium Chloride 100 ml @ 200 mls/hr Q12H IV Last administered on 05/25/17at 09:42; Start 05/21/17 at 06:00 Clonidine (Catapres) 0.1 mg Q6H PRN PO SBP> OR = 180, DBP> OR = 100 Last administered on 05/25/17 09:01; Start 05/24/17 at 18:30 Enalaprilat (Vasotec Inj) 1.25 mg Q6H PRN IV PUSH SBP>160, DBP>90 Last administered on 05/24/17at 20:34; Start 05/21/17 at 05:00 Guaifenesin/ Dextromethorphan (Robitussin Dm 200-20 Mg/10 ml Liq) 10 ml Q6H PRN PO COUGH Last administered on 05/22/17 01:26; Start 05/21/17 at 14:15 Hydroxyzine HCl (Atarax) 10 mg Q8H PRN PO Anxiety Last administered on at 19:47; Start 05/21/17 at 11:45 Lactulose (Lactulose Liq) 30 ml DAILY PRN PO SEVERE CONSITIPATION; Start at 02:30 Magnesium Hydroxide (Milk Of Magnesia Liq) 30 ml Q12H PRN PO Mild constipation ; Start 05/21/17 at 02:30 Methocarbamol (Robaxin) 500 mg TID PO Last administered on 05/25/17at 08:56; Start 05/21/17 at 09:00 Miscellaneous Information SPECIFIC LAB TO BE DRAWN:VANCOMY... ONCE ONCE .XX Last administered on 05/22/17at 04:45; Start 05/22/17 at 04:45; Stop 05/22/17 at 04:46; Status DC Morphine Sulfate (Morphine Inj) 2 mg Q3H PRN IV PUSH BREAKTHROUGH PAIN Last administered on 05/24/17at 16:19; Start 05/21/17 at 02:30 Naloxone HCl (Narcan Inj) 0.4 mg UNSCH PRN IV PUSH SEE LABEL COMMENTS; Start at 02:30 Ondansetron HCl (Zofran Inj) 4 mg Q6H PRN IVP NAUSEA OR VOMITING; Start at 02:30 Pharmacy Profile Note 0 ml @ 0 mls/hr UNSCH OTHER ; Start 05/21/17 at 02:30; Stop 05/23/17 at 15:51; Status DC Piperacillin Sod/ Tazobactam Sod 50 ml @ 100 mls/hr Q6H IV Last administered on 05/21/17at 04:36; Start 05/21/17 at 03:00; Stop 05/21/17 at 04:48; Status DC Potassium Chloride (KCl) 30 meq ONCE ONCE PO Last administered on 05/23/17at 14 :32; Start 05/23/17 at 14:15; Stop 05/23/17 at 14:21; Status DC Propranolol HCl (Inderal) 10 mg Q8HR PO ; Start 05/25/17 at 14:00 Senna/Docusate Sodium ([place]-Colace) 1 tab BID PO Last administered on at 08:51; Start 05/21/17 at 09:00 Sennosides (Senokot) 17.2 mg Q12H PRN PO Moderate constipation; Start 05/21/17 at 02:30 Sodium Chloride (NS Flush) 2 ml BID IV FLUSH Last administered on 05/24/17at 20: 34; Start 05/21/17 at 09:00 Vancomycin HCl 1250 mg/Sodium Chloride 262.5 ml @ 250 mls/hr Q12H IV Last administered on 05/23/17at 04:17; Start 05/21/17 at 17:00; Stop 05/23/17 at 15:46 ; Status DC A/P Problem List: (1) Epidural abscess ICD Code: G06.2 - Extradural and subdural abscess, unspecified Status: Acute (2) UTI (urinary tract infection) ICD Code: N39.0 - Urinary tract infection, site not specified Status: Acute (3) Pneumonia ICD Code: J18.9 - Pneumonia, unspecified organism Status: Acute Assessment and Plan Chronic back pain - Spinal abscess ruled out by MRI ESR 47, CRP 20 -MRI T spine ordered -spinal abscess ruled out. -continue Pain management. -PT eval and treat -Started initially on vancomycin and cefepime ; will change to Levaquin -Cont. home muscle relaxer -Pt recommends SNF. Pain controlled. Pneumonia - antibiotics as above -Florina scheduled -Incentive spirometer ordered -passed walk test. Hypertension, chronic, unstable, not on any home medications -Suspect pain related, Vasotec prn -Monitor vitals Generalized weakness -Physical therapy consulted. Risk of therapy recommends sniff placement, however does not have a payer source. -Will order PT twice a day during the weekends. DVT prophylaxis: SCDs Discharge Planning case management to assist with dc planning to rehab. Dennis Babb MD May 25, 2017 11:38
[2017-05-25] MEDS: PROPRANOLOL HCL 10 MG TAB PO SCH ×2 (13:03→21:21)
[2017-05-25] MEDS: guaiFENesin/DEXTROMETHORPHAN 200 MG/20 MG/10 ML CUP PO PRN (15:37)
--- NOTE | 2017-05-25 17:10 | HHI.DCPOC ---
Discharge Care Plan Diagnosis: (1) Pneumonia (2) UTI (urinary tract infection) Your Health Problems Are: Anxiety Difficulty with ADL Shortness of Breath Goals to Promote Your Health * To prevent worsening of your condition and complications * To maintain your health at the optimal level Directions to Meet Your Goals Take your medications as prescribed Follow your dietary instruction Follow activity as directed Keep your appointments as scheduled Take your immunizations and boosters as scheduled If your symptoms worsen call your PCP, if no PCP go to Urgent Care Center or Emergency Room Smoking is Dangerous to Your Health. Avoid second hand smoke Call the 24-hour hour crisis hotline for domestic abuse at Randall Paul May 25, 2017 17:10
[2017-05-25] MEDS: hydrOXYzine HCL 10 MG TAB PO PRN (21:21)
[2017-05-26] MEDS: ACETAMINOPHEN/HYDROcodone 325 MG/7.5 MG TAB PO PRN ×3 (01:24→16:16)
[2017-05-26 03:53] VITALS: BP 123/83; PULSE 82; RESP 17; TEMP 98.5; O2SAT 92
[2017-05-26] MEDS: PROPRANOLOL HCL 10 MG TAB PO SCH ×2 (06:00→10:24)
[2017-05-26 08:16] VITALS: BP 112/73; PULSE 94; RESP 20; TEMP 97.4; O2SAT 95
[2017-05-26] MEDS: METHOCARBAMOL 500 MG TAB PO SCH ×2 (08:33→14:00)
[2017-05-26] MEDS: SODIUM CHLORIDE 0.9% FLUSH 10 ML FLUSH IV FLUSH SCH (08:34)
[2017-05-26] MEDS: DOCUSATE SODIUM 50 MG/SENNA 8.6 MG TAB PO SCH ×2 (08:34→10:23)
[2017-05-26] MEDS ORDERED: WALKER WHEELS/F1 MIS (08:49)
[2017-05-26] MEDS ORDERED: LEVOFLOXACIN 500 MG TAB PO SCH (09:00)
[2017-05-26 09:17] LABS: CREATININE 0.57 MG/DL (0.50-1.00)
[2017-05-26 10:51] VITALS: BP 125/83; PULSE 103; RESP 20; TEMP 98.5; O2SAT 95
[2017-05-26] MEDS ORDERED: BUDESONIDE-FORMOTEROL 160/4.5 MCG INHALER INH SCH (11:00)
[2017-05-26 11:22] LABS: BICARBONATE 29.4 MEQ/L (21.0-32.0); CALCIUM 9.3 MG/DL (8.5-10.1)
[2017-05-26] MEDS ORDERED: HYDR-3516 PO (11:30)
[2017-05-26] MEDS ORDERED: DEXT10SY2 PO (11:30)
[2017-05-26] MEDS ORDERED: AMLO10 PO (11:30)
[2017-05-26] MEDS ORDERED: Budeson-Formot 160-4.5 Mcg Inh INH (11:30)
[2017-05-26] MEDS ORDERED: LEVA500T33 PO (11:30)
[2017-05-26] MEDS ORDERED: PROP10TA6 PO (11:30)
[2017-05-26] MEDS ORDERED: LACTULOSE SYRUP 20 GM/30 ML CUP PO ONE (11:30)
--- NOTE | 2017-05-26 11:37 | HHI.DS ---
Discharge Summary Admission Date May 21, 2017 at 01:00 Discharge Date: May 26, 2017 Admitting Diagnosis (1) Epidural abscess ICD Code: G06.2 - Extradural and subdural abscess, unspecified Status: Acute (2) UTI (urinary tract infection) ICD Code: N39.0 - Urinary tract infection, site not specified Status: Acute (3) Pneumonia ICD Code: J18.9 - Pneumonia, unspecified organism Status: Acute Procedures None Brief History - From Admission 47 y/o female with a history of HTN, heart murmer, kidney stones, and chronic back pain presented to the ED with Increasing pain since back surgery in September and a fall at home. Today she was getting out of bed today and she slid to the ground and landed on her but and felt severe pain up her spine. She states the mid back pain is constant, sharp, 7/10 with radiation up her spine, with numbness in both legs, movement makes it worse, pain medication is helping some. She states she had a 101.1 fever at home, denies chills. Recent illness of a cough 2 weeks, no dental infections noted, UTI 2 weeks ago which required antibiotics. Denies chest pain, sob or urinary/ bowel incontinence. Dr. Langston and Dr. Tesfaye- surgeons CBC/BMP: 05/23/17 1237 05/26/17 0801 Significant Findings Laboratory Tests Test 05/23/17 12:37 05/24/17 09:03 05/26/17 08:01 Hemoglobin 9.9 GM/DL (11.6-15.3) Hematocrit 30.8 % (35.0-46.0) Mean Corpuscular Volume 74.2 FL (80.0-100.0) Mean Corpuscular Hemoglobin 23.9 PG (27.0-34.0) Platelet Count 557 TH/MM3 (150-450) Potassium Level 3.4 MEQ/L (3.5-5.1) Imaging Last Impressions Chest X-Ray 05/24/17 0000 Signed Impressions: Service Date/Time: Wednesday, May 24, 2017 18:27 - CONCLUSION: Persistent patchy bilateral airspace disease. Sunday Pond MD Thoracic Spine MRI 05/21/17 0000 Signed Impressions: Service Date/Time: Sunday, May 21, 2017 13:09 - CONCLUSION: Extensive artifact, no defined abscess. Paulino Bonilla MD FACR PE at Discharge GENERAL: This is a well-nourished, well-developed patient, in no apparent distress. CARDIOVASCULAR: Regular rate and regular rhythm without murmurs, gallops, or rubs. RESPIRATORY: Clear to auscultation. Breath sounds equal bilaterally. No wheezes , rales, or rhonchi. GASTROINTESTINAL: Abdomen soft, non-tender, nondistended. Normal, active bowel sounds MUSCULOSKELETAL: Extremities without clubbing, cyanosis, or edema. NEURO: Alert & Oriented x4 to person, place, time, situation. Moves all ext x4 Pt update on day of discharge Follow-up visit chronic back pain, HTN, pneumonia, UTI. Patient seen and examined today laying in bed. Reports constipation does not move her bowels 2 days. Discussed with patient she refused her stool softeners and laxatives. Will give her laxatives today. Discussed plan to discharge her home. Patient states she is homeless but she has a friend that could help her out for tomorrow. Will discuss with case management for resources. Continues to complaint of back pain, radiating to her legs, 8/10, sharp, achy, relieved by pain medicine. As per nursing, patient continues to ask for pain medication. Otherwise, denies SOB/ dyspnea. Reports occasional cough . Denies chest pain, palpitations, headaches, dizziness. Denies fevers, chills, n/v/d. Denies dysuria. Hospital Course 47 y/o female with a history of HTN, heart murmer, kidney stones, and chronic back pain presented to the ED with Increasing pain since back surgery in September and a fall at home. Today she was getting out of bed today and she slid to the ground and landed on her but and felt severe pain up her spine. Patient is known to have chronic back pain, spinal abscess has been ruled out by MRI. ESR 47, CRP 20. Continues to be on pain management with [facility]. Patient was evaluated and treated by physical therapy. She will need a walker with discharge. She was empirically started with vancomycin and cefepime. She was switched over to Levaquin p.o. Continue with home muscle relaxants. PT recommends stiff placement however patient has no insurance benefits. Patient also found to have pneumonia. Treated with antibiotics, Jalyn landeros, started on Symbicort. Patient has passed a walk test. During hospitalization patient is very anxious, tachycardic, and with elevated blood pressure. She has a history of hypertension and not on any home medications. This could be pain related also. She was started on Norvasc 5 mg daily and also propanolol which has helped her controlled her BP and her anxiety. Patient is clinically improved. Plan to discharge home facilitated by case management. She will did go to her friend's house. Discussed follow-up with [facility] Pt Condition on Discharge: Stable Discharge Disposition: Discharge Home Discharge Time: <= 30 minutes Discharge Instructions DIET: Follow Instructions for: Heart Healthy Diet Activities you can perform: Regular-No Restrictions Activities to Avoid: Driving Follow up Referrals: PCP Follow-up - 2-3 Days New Medications: Walker with Front Wheels (Walker with Front Wheels) 1 Mis Mis EA .XX DIRECTED, #1 0 Refills Amlodipine (Norvasc) 10 Mg Tab 10 MG PO DAILY for Blood Pressure Management, #30 TAB Dextromethorphan-Guaifenesin (Dextromethorphan/Guaifene 10-100 mg/5Ml) 100 Mg- 10 Mg/5 Ml Syp 10 ML PO Q6H PRN for COUGH, #100 ML Hydrocodone/Acetaminophen (Hydrocodone-Acetamin 5-325 mg) 5 Mg-325 Mg Tablet 1 TAB PO Q8HR PRN for Pain, #12 TAB Levofloxacin (Levaquin) 500 Mg Tablet 500 MG PO DAILY for Infection, #6 TAB Propranolol (Propranolol) 10 Mg Tab 10 MG PO Q8HR for Anxiety, BP and HR management, #90 TAB [Budeson-Formot 160-4.5 Mcg Inh] () 60 PUFF AERO 1 PUFF INH Q12HR for COPD, #1 INHALER Continued Medications: Ibuprofen (Ibuprofen) 800 Mg Tab 800 MG PO Q6HR PRN for PAIN, #30 TAB 0 Refills Methocarbamol (Methocarbamol) 500 Mg Tab 500 MG PO TID for Muscle Spasm, #90 TAB 0 Refills Randall Paul May 26, 2017 11:37
[2017-05-26 15:35] VITALS: BP 118/73; PULSE 90; RESP 16; TEMP 98.4; O2SAT 93
--- NOTE | 2017-05-26 18:03 | HHI.PR ---
Subjective Remarks in no distress. looks comfortable. no new complaints. Objective Vitals Vital Signs Date Time Temp Pulse Resp B/P (MAP) Pulse Ox O2 Delivery O2 Flow Rate FiO2 05/26/17 15:35 98.4 90 16 118/73 (88) 93 05/26/17 10:51 98.5 103 20 125/83 (97) 95 05/26/17 08:16 97.4 94 20 112/73 (86) 95 Manual Cuff/Auscultation 05/26/17 03:53 98.5 82 17 123/83 (96) 92 05/25/17 23:51 98.9 78 18 121/76 (91) 92 05/25/17 22:21 18 05/25/17 20:00 99.2 95 17 120/74 (89) 94 I/O 05/25/17 05/25/17 05/25/17 05/26/17 05/26/17 05/26/17 07:00 15:00 23:00 07:00 15:00 23:00 Intake Total 100 ml Balance 100 ml Intake Oral 100 ml Result Diagram: 05/23/17 1237 05/26/17 0801 Imaging Last Impressions Chest X-Ray 05/24/17 0000 Signed Impressions: Service Date/Time: Wednesday, May 24, 2017 18:27 - CONCLUSION: Persistent patchy bilateral airspace disease. Sunday Pond MD Thoracic Spine MRI 05/21/17 0000 Signed Impressions: Service Date/Time: Sunday, May 21, 2017 13:09 - CONCLUSION: Extensive artifact, no defined abscess. Paulino Bonilla MD FACR Objective Remarks GENERAL: This is a well-nourished, well-developed patient, in no apparent distress. CARDIOVASCULAR: Regular rate and regular rhythm without murmurs, gallops, or rubs. RESPIRATORY: Clear to auscultation. Breath sounds equal bilaterally. No wheezes , rales, or rhonchi. GASTROINTESTINAL: Abdomen soft, non-tender, nondistended. Normal, active bowel sounds MUSCULOSKELETAL: Extremities without clubbing, cyanosis, or edema. NEURO: Alert & Oriented x4 to person, place, time, situation. Moves all ext x4 Procedures None Medications and IVs Inpatient Medications Acetaminophen (Tylenol) 650 mg Q4H PRN PO TEMP > 100.4; Start 05/21/17 at 02:30 Acetaminophen/ Hydrocodone Bitart ([place] 5-325 Mg) 1 tab Q4H PRN PO Pain 4-6 Last administered on 05/22/17at 05:03; Start 05/21/17 at 11:45 Acetaminophen/ Hydrocodone Bitart ([place] 7.5-325 Mg) 1 tab Q4H PRN PO Pain 7- 10 Last administered on 05/26/17at 16:16; Start 05/21/17 at 11:45 Albuterol/ Ipratropium (Duoneb Neb) 1 ampule Q4HR NEB NEB Last administered on 05/25/17at 07:26; Start 05/21/17 at 08:00; Stop 05/25/17 at 07:59; Status DC Amlodipine Besylate (Norvasc) 10 mg DAILY PO Last administered on 05/26/17at 08: 33; Start 05/24/17 at 18:30 Bisacodyl (Dulcolax Supp) 10 mg DAILY PRN RECTAL SEVERE CONSITIPATION; Start at 02:30 Budesonide/ Formoterol Fumarate (Symbicort 160-4.5 Mcg Inh) 1 puff Q12HR INH ; Start 05/26/17 at 11:00 Cefepime HCl 2000 mg/Sodium Chloride 100 ml @ 200 mls/hr Q12H IV Last administered on 05/25/17at 17:20; Start 05/21/17 at 06:00; Stop 05/25/17 at 23:00 ; Status DC Clonidine (Catapres) 0.1 mg Q6H PRN PO SBP> OR = 180, DBP> OR = 100 Last administered on 05/25/17at 09:01; Start 05/24/17 at 18:30 Enalaprilat (Vasotec Inj) 1.25 mg Q6H PRN IV PUSH SBP>160, DBP>90 Last administered on 05/24/17at 20:34; Start 05/21/17 at 05:00 Guaifenesin/ Dextromethorphan (Robitussin Dm 200-20 Mg/10 ml Liq) 10 ml Q6H PRN PO COUGH Last administered on 05/25/17at 15:37; Start 05/21/17 at 14:15 Hydroxyzine HCl (Atarax) 10 mg Q8H PRN PO Anxiety Last administered on at 21:21; Start 05/21/17 at 11:45 Lactulose (Lactulose Liq) 30 ml ONCE ONCE PO ; Start 05/26/17 at 11:30; Stop at 11:31; Status DC Levofloxacin (Levaquin) 500 mg DAILY PO Last administered on 05/26/17at 08:33; Start 05/26/17 at 09:00 Magnesium Hydroxide (Milk Of Magnesia Liq) 30 ml Q12H PRN PO Mild constipation ; Start 05/21/17 at 02:30 Methocarbamol (Robaxin) 500 mg TID PO Last administered on 05/26/17at 14:00; Start 05/21/17 at 09:00 Miscellaneous Information SPECIFIC LAB TO BE DRAWN:VANCOMY... ONCE ONCE .XX Last administered on 05/22/17at 04:45; Start 05/22/17 at 04:45; Stop 05/22/17 at 04:46; Status DC Morphine Sulfate (Morphine Inj) 2 mg Q3H PRN IV PUSH BREAKTHROUGH PAIN Last administered on 05/24/17at 16:19; Start 05/21/17 at 02:30 Naloxone HCl (Narcan Inj) 0.4 mg UNSCH PRN IV PUSH SEE LABEL COMMENTS; Start at 02:30 Ondansetron HCl (Zofran Inj) 4 mg Q6H PRN IVP NAUSEA OR VOMITING; Start at 02:30 Pharmacy Profile Note 0 ml @ 0 mls/hr UNSCH OTHER ; Start 05/21/17 at 02:30; Stop 05/23/17 at 15:51; Status DC Piperacillin Sod/ Tazobactam Sod 50 ml @ 100 mls/hr Q6H IV Last administered on 05/21/17at 04:36; Start 05/21/17 at 03:00; Stop 05/21/17 at 04:48; Status DC Potassium Chloride (KCl) 30 meq ONCE ONCE PO Last administered on 05/23/17at 14 :32; Start 05/23/17 at 14:15; Stop 05/23/17 at 14:21; Status DC Propranolol HCl (Inderal) 10 mg Q8HR PO Last administered on 05/26/17at 10:24; Start 05/25/17 at 14:00 Senna/Docusate Sodium (Libia-Colace) 1 tab BID PO Last administered on at 10:23; Start 05/21/17 at 09:00 Sennosides (Senokot) 17.2 mg Q12H PRN PO Moderate constipation; Start 05/21/17 at 02:30 Sodium Chloride (NS Flush) 2 ml BID IV FLUSH Last administered on 05/26/17at 08: 34; Start 05/21/17 at 09:00 Vancomycin HCl 1250 mg/Sodium Chloride 262.5 ml @ 250 mls/hr Q12H IV Last administered on 05/23/17at 04:17; Start 05/21/17 at 17:00; Stop 05/23/17 at 15:46 ; Status DC A/P Problem List: (1) Epidural abscess ICD Code: G06.2 - Extradural and subdural abscess, unspecified Status: Acute (2) UTI (urinary tract infection) ICD Code: N39.0 - Urinary tract infection, site not specified Status: Acute (3) Pneumonia ICD Code: J18.9 - Pneumonia, unspecified organism Status: Acute Assessment and Plan Chronic back pain - Spinal abscess ruled out by MRI ESR 47, CRP 20 -MRI T spine ordered -spinal abscess ruled out. -continue Pain management. -PT eval and treat -Started initially on vancomycin and cefepime ; changed to Levaquin -Cont. home muscle relaxer -Pt recommends SNF. Pain controlled. Pneumonia - antibiotics as above -Duonebs scheduled -Incentive spirometer ordered -passed walk test. Hypertension, chronic, unstable, not on any home medications -Suspect pain related, Vasotec prn -Monitor vitals Generalized weakness -Physical therapy consulted. Risk of therapy recommends sniff placement, however does not have a payer source. -Will order PT twice a day during the weekends. DVT prophylaxis: SCDs Discharge Planning dc soon. Dennis Babb MD May 26, 2017 18:03
== END 2017-05-26 21:18 | disposition home or self-care (01) ==
LOC: NEDDLT 00:50 → NEPHCDU 01:00
PROVIDERS: ADMIT Internal Medicine; ATTEND Internal Medicine
DX: J18.9 Pneumonia, unspecified organism (principal); G06.1 Intraspinal abscess and granuloma; N39.0 Urinary tract infection, site not specified; M54.9 Dorsalgia, unspecified; I10 Essential (primary) hypertension; G89.29 Other chronic pain; E87.6 Hypokalemia; D64.9 Anemia, unspecified; F41.9 Anxiety disorder, unspecified; W19.XXXA Unspecified fall, initial encounter; Z82.49 Family history of ischemic heart disease and other diseases of the circulatory system; Z98.1 Arthrodesis status; Z87.442 Personal history of urinary calculi
CPT/HCPCS: 71045; 71250; 72072; 72100; 72157; 74176; 76937; 80048; 80053; 80202; 81001; 82565; 83690; 83735; 84100; 85025; 85027; 85652; 86140; 87040; 87086; 94150; 94618; 94640; 94664; 96365; 96366; 96367; 96368; 96375; 96376; 97116; 97162; 97530; 99285; A9579; G0378; G8987; G8988; J0692; J1100; J2270; J2543; J3370; J7030; J7050

== ENCOUNTER 2017-05-28 09:55 | Observation (INO) | payer OTHER ==
[~2017-05-28] VITALS: Ht 162.6 cm; Wt 85.0 kg
[~2017-05-28 09:55] MED LIST changes: +AMLO10 PO; +Budeson-Formot 160-4.5 Mcg Inh INH; +DEXT10SY2 PO; +HYDR-3516 PO; +LEVA500T33 PO; +METH500T3 PO; +PROP10TA6 PO; +WALKER WHEELS/F1 MIS
[2017-05-28 10:32] VITALS: BP 138/86; PULSE 125; RESP 24; TEMP 98.5; O2SAT 97
--- NOTE | 2017-05-28 13:04 | PD ---
HPI Chief Complaint: Psychiatric Symptoms Time Seen by Provider: 11:43 Travel History International Travel<30 days: No Contact w/Intl Traveler<30days: No Traveled to known affect area: No History of Present Illness HPI 47-year-old female presents to the emergency department via EMS with a complaint she doesn't want to live anymore because she "cannot take care of herself." She denies suicidal ideation and does not have a plan. She does not have thoughts of wanting to hurt herself or kill herself. She says she is here because she does not know where else to go and she cannot care for herself. She says she has nowhere else to go. She says she wants physical therapy. She was admitted here on May 20 with pneumonia and discharged 2 days ago on May 26. Apparently the patient has recently become homeless and her son who cares for her is in shelter and she was evicted from her home. Upon discharge from the hospital 2 days ago the patient was provided with a hotel stay for 2 days. The patient says while she was here she fell injuring her lower back and she also fell while she was in the hotel and the front desk team member would not call 911 for her. She says her lower extremities are weak and she cannot walk, bathe herself, get herself to the bathroom and she cannot stand up. Her weakness is not new and is due to her chronic upper back pain. She says she lives in [place] and does not understand why she was given a hotel room in [facility] because she could not find a way back. Denies encopresis, incontinence, saddle anesthesias. Denies fever, vomiting. Denies chest pain, shortness breath, abdominal pain. Denies paresthesias, loss of sensation, decreased range of motion to all extremities. She has a walker for assistance and says it is difficult to use her walker. She says she has not been taking the Levaquin that she was prescribed because she was not told when she needed to take it. She has not been taking any of the other medications that she was discharged with because she was not advised on how to take the medications. Primary care provider is [facility]. She has history of hypertension, chronic back pain, COPD. She has allergies to tape, Band-Aids, cyclobenzaprine. She has no other medical complaints. No other modifying factors or associated signs and symptoms. [facility] Past Medical History Anxiety: Yes Depression: Yes Cerebrovascular Accident: Yes Diminished Hearing: No Herniated Disk: Yes Musculoskeletal: Yes (FUSED DISCS & JANETH IN HER SPINE) Myocardial Infarction: Yes ?: Not Menopausal: Yes Past Surgical History Other Surgery: Yes Social History Alcohol Use: No Tobacco Use: No Substance Use: No Allergies-Medications (Allergen,Severity, Reaction): Coded Allergies: cyclobenzaprine (Verified Allergy, Severe, Hallucinations, 05/28/17) Uncoded Allergies: BANDAID (Allergy, Intermediate, Irritation, 05/10/17) STATES SKIN EMACERATES(?) UNDER THE GLUE OF THE BANDAID Reported Meds & Prescriptions Reported Meds & Active Scripts Active [Budeson-Formot 160-4.5 Mcg Inh] 60 PUFF Aero 1 Puff INH Q12HR Norvasc (Amlodipine Besylate) 10 Mg Tab 10 Mg PO DAILY Propranolol (Propranolol HCl) 10 Mg Tab 10 Mg PO Q8HR Levaquin (Levofloxacin) 500 Mg Tablet 500 Mg PO DAILY Walker with Front Wheels (Device) 1 Mis Mis Ea .XX DIRECTED Reported Methocarbamol 500 Mg Tab 500 Mg PO TID Review of Systems Except as stated in HPI: all other systems reviewed are Neg Physical Exam Narrative GENERAL: Well-nourished, well-developed female patient, in no acute distress; afebrile, nontoxic-appearing; tearful SKIN: Warm and dry. HEAD: Atraumatic. Normocephalic. EYES: Pupils equal and round. No scleral icterus. No injection or drainage. ENT: Mucosa pink and moist. Airway patent. NECK: Trachea midline. CARDIOVASCULAR: Regular rate and rhythm. No murmur appreciated. RESPIRATORY: No accessory muscle use sounds clear and equal bilaterally. No retractions or tachypnea.. GASTROINTESTINAL: Abdomen soft, non-tender, nondistended. Positive bowel sounds. No hepato-splenomegaly, or palpable masses. No guarding. MUSCULOSKELETAL: Bilateral lower extremities supple and non-tense with 2+ pedal pulses and sensory intact; with full range of motion and 5/5 strength. 2 + DTRs bilaterally. Active dorsiflexion and extension of bilateral feet. Ambulatory in room with normal gait. Sitting up in bed at 90. No obvious deformities. No clubbing. No cyanosis. No edema. BACK: Midline point tenderness on palpation of the lumbar spine. No obvious deformities. NEUROLOGICAL: Awake and alert. Oriented 3. No obvious cranial nerve deficits. Motor grossly within normal limits. Normal speech. Moves all extremities. 5/5 strength to all extremities. Sensory intact. PSYCHIATRIC: Appropriate mood and affect; insight and judgment normal. Data Data Last Documented VS Vital Signs Date Time Temp Pulse Resp B/P (MAP) Pulse Ox O2 Delivery O2 Flow Rate FiO2 05/28/17 19:20 16 05/28/17 18:00 106 123/82 (96) 98 Room Air 05/28/17 10:32 98.5 Orders Orders Complete Blood Count With Diff (05/28/17 10:36) Comprehensive Metabolic Panel (05/28/17 10:36) Drug Screen, Random Urine (05/28/17 10:36) Urinalysis - C+S If Indicated (05/28/17 11:44) Alcohol (Ethanol) (05/28/17 11:44) Salicylates (Aspirin) (05/28/17 11:44) Tylenol (Acetaminophen) (05/28/17 11:44) Chest, Pa & Lat (05/28/17 12:20) Ct Lumb Spine W/O Contrast (05/28/17 ) Acetamin-Hydrocod 325-5 Mg ([place] 5-325 (05/28/17 13:15) Methocarbamol (Robaxin) (05/28/17 15:00) Mri L Spine W/O Contrast (05/28/17 ) Admit Order (Ed Use Only) (05/28/17 19:21) Labs Laboratory Tests Test 05/28/17 10:56 White Blood Count 10.1 TH/MM3 Red Blood Count 4.62 MIL/MM3 Hemoglobin 11.0 GM/DL Hematocrit 34.1 % Mean Corpuscular Volume 73.7 FL Mean Corpuscular Hemoglobin 23.9 PG Mean Corpuscular Hemoglobin Concent 32.4 % Red Cell Distribution Width 17.8 % Platelet Count 840 TH/MM3 Mean Platelet Volume 7.3 FL Neutrophils (%) (Auto) 73.7 % Lymphocytes (%) (Auto) 19.3 % Monocytes (%) (Auto) 5.3 % Eosinophils (%) (Auto) 0.8 % Basophils (%) (Auto) 0.9 % Neutrophils # (Auto) 7.4 TH/MM3 Lymphocytes # (Auto) 1.9 TH/MM3 Monocytes # (Auto) 0.5 TH/MM3 Eosinophils # (Auto) 0.1 TH/MM3 Basophils # (Auto) 0.1 TH/MM3 CBC Comment DIFF FINAL Differential Comment Blood Urea Nitrogen 14 MG/DL Creatinine 0.82 MG/DL Random Glucose 94 MG/DL Total Protein 9.1 GM/DL Albumin 2.9 GM/DL Calcium Level 9.7 MG/DL Alkaline Phosphatase 125 U/L Aspartate Amino Transf (AST/SGOT) 16 U/L Alanine Aminotransferase (ALT/SGPT) 11 U/L Total Bilirubin 0.5 MG/DL Sodium Level 134 MEQ/L Potassium Level 3.6 MEQ/L Chloride Level 97 MEQ/L Carbon Dioxide Level 27.7 MEQ/L Anion Gap 9 MEQ/L Estimat Glomerular Filtration Rate 75 ML/MIN Salicylates Level LESS THAN 1.7 MG/DL Acetaminophen Level LESS THAN 2.0 MCG/ML Ethyl Alcohol Level LESS THAN 3 MG/DL MDM Medical Decision Making Medical Screen Exam Complete: Yes Emergency Medical Condition: Yes Medical Record Reviewed: Yes Differential Diagnosis chronic back pain, failure to thrive, anxiety, lumbar contusion, lumbar fracture Narrative Course 47-year-old female who was discharged from [facility] 2 days ago with pneumonia and lower extremity weakness secondary to chronic back pain. She was discharged into a hotel room for 2 days, provided by [place]. She presents today stating that she has nowhere else to go and cannot care for herself. She denies suicidal ideations. She does not want to hurt herself. She just does not have any vertigo. I feel like she is not a threat to herself or others and feel that this is not a psychiatric situation and canceled the psychiatric screen. I feel this is something that needs to involve case management. Case management involved and they recommended physical therapy consult. Physical therapy consult ordered. Case management has placed a call to the patient's friend and they have agreed to come and pick the patient up when she is discharged. The patient was discharged after being treated for pneumonia. She has not taken her antibiotics and she has been discharged. I will repeat chest x-ray to rule out continued pneumonia. Patient states she fell while she was here in the hospital during her stay and fell again at the hotel injuring her lower back. Denies encopresis, incontinence, saddle anesthesias. Patient has walker for support. CT of the lumbar spine ordered. [place] ordered. 1839: Chest x-ray, lumbar spine CT, and lumbar spine MRI conclude: Chest X-Ray 05/28/17 1220 Signed Impressions: Service Date/Time: Sunday, May 28, 2017 13:10 - CONCLUSION: Negative for acute process. Lungs under aerated but clear. Paulino Bonilla MD FACR Lumbar Spine MRI 05/28/17 0000 Signed Impressions: Service Date/Time: Sunday, May 28, 2017 17:33 - CONCLUSION: Slight spondylolisthesis at L4-5 which appears to relate to severe posterior facet disease. Small central disc protrusion at L2-3 and slight left paracentral disc protrusion at T12-L1, neither producing any significant anatomic compromise. See above discussion. Sunday Nascimento MD Lumbar Spine CT 05/28/17 0000 Signed Impressions: Service Date/Time: Sunday, May 28, 2017 14:07 - CONCLUSION: 1. Multilevel degenerative spondylosis of the lumbar spine most prominently at L4-S1. There is very severe facet arthropathy at L4-5. There is at least mild to moderate stenosis of the central canal at these levels with mild neural foraminal narrowing at L4-5 and moderate neural foraminal narrowing at L5-S1. Patient would benefit from MRI exam or CT myelography for further evaluation. Júnior Pearl MD Radiology findings discussed with the patient. Dr. Arroyo reviewed radiology findings and recommends patient to follow-up with her neurosurgeon. Patient ambulated in the hallway with assistance with her walker; she is slow and unsteady on her feet. I spoke with case management and they are unable to find placement or a friend or family member to picker and packer the patient. Patient says she has nowhere to go. Advised to admit for observation for intractable back pain and increased debilitation. Call placed to [facility]. 1919: I spoke with [facility] Nina and report was given for patient admission. Physician Communication Physician Communication [facility] Nina Diagnosis Primary Impression: Chronic back pain Qualified Codes: M54.6 - Pain in thoracic spine; G89.29 - Other chronic pain Additional Impressions: Low back pain Qualified Codes: M54.5 - Low back pain Intractable back pain Increased debilitation Admitting Information Admitting Physician Requests: Observation Swati Lopez [facility] May 28, 2017 13:04
[2017-05-28 13:13] LABS: AUTOMATED NEUTROPHIL # 7.4 TH/MM3 (1.8-7.7); BASOPHIL # 0.1 TH/MM3 (0-0.2); BASOPHIL % 0.9 % (0.0-2.0); EOSINOPHIL # 0.1 TH/MM3 (0-0.4); EOSINOPHIL % 0.8 % (0.0-4.0); HEMATOCRIT 34.1 % (35.0-46.0); LYMPH % 19.3 % (9.0-44.0); LYMPHOCYTE # 1.9 TH/MM3 (1.0-4.8); MEAN CELL VOLUME 73.7 FL (80.0-100.0); MEAN CORPUSCULAR HEMOGLOBIN 23.9 PG (27.0-34.0); MEAN CORPUSCULAR HGB CONC 32.4 % (32.0-36.0); MEAN PLATELET VOLUME 7.3 FL (7.0-11.0); MONO % 5.3 % (0.0-8.0); MONOCYTE # 0.5 TH/MM3 (0-0.9); NEUT % 73.7 % (16.0-70.0); PLATELET COUNT 840 TH/MM3 (150-450); RED BLOOD COUNT 4.62 MIL/MM3 (4.00-5.30); RED CELL DISTRIBUTION WIDTH 17.8 % (11.6-17.2); WHITE BLOOD COUNT 10.1 TH/MM3 (4.0-11.0)
[2017-05-28] MEDS ORDERED: ACETAMINOPHEN/HYDROcodone 325 MG/5 MG TAB PO ONE (13:15)
[2017-05-28 13:29] LABS: ALBUMIN 2.9 GM/DL (3.4-5.0); AST (GOT) 16 U/L (15-37); BICARBONATE 27.7 MEQ/L (21.0-32.0); BLOOD UREA NITROGEN 14 MG/DL (7-18); CALCIUM 9.7 MG/DL (8.5-10.1); CHLORIDE 97 MEQ/L (98-107); CREATININE 0.82 MG/DL (0.50-1.00); GLOMERULAR FILTRATION RATE 75 ML/MIN (>89); GLUCOSE,RANDOM 94 MG/DL (74-106); SODIUM (NA) 134 MEQ/L (136-145)
--- NOTE | 2017-05-28 13:30 | RADRPT ---
EXAM DATE/TIME: 05/28/2017 13:10 [facility] COMPARISON: MRI THORACIC SPINE W & W/O CONTRAST, May 21, 2017, 13:09. INDICATIONS : Shortness of breath and back pain. MEDICAL HISTORY : Myocardial infarction. Stroke. SURGICAL HISTORY : Fusion, thoracic. Left sided rib fusion ENCOUNTER: Initial ACUITY: 1 week PAIN SCORE: 10/10 LOCATION: Bilateral back FINDINGS: Evidence for previous rib and spine surgery. Lungs under aerated but clear. Cardiac silhouette appr opriate for this degree of inspiration. CONCLUSION: Negative for acute process. Lungs under aerated but clear. Paulino Bonilla MD FACR on May 28, 2017 at 13:27 Board Certified Radiologist. This report was verified electronically.
[2017-05-28 13:33] LABS: ALKALINE PHOSPHATASE 125 U/L (45-117); ALT (GPT) 11 U/L (10-53); TOTAL BILIRUBIN ADULT 0.5 MG/DL (0.2-1.0); TOTAL PROTEIN 9.1 GM/DL (6.4-8.2)
--- NOTE | 2017-05-28 14:46 | RADRPT ---
EXAM DATE/TIME: 05/28/2017 14:07 [facility] COMPARISON: No previous studies available for comparison. INDICATIONS : Lower back pain with weakness in both legs. RADIATION DOSE: 35.86 CTDIvol (mGy) MEDICAL HISTORY : Cerebrovascular disease. Cardiovascular disease SURGICAL HISTORY : Rods in thoracic spine. ENCOUNTER: Initial ACUITY: 4 - 6 days PAIN SCALE: 8/10 LOCATION: Lumbar region TECHNIQUE: Volumetric scanning of the lumbar spine was performed. Multiplanar reconstructions in the sagittal, coronal and oblique axial planes were performed. Using automated exposure control and adjustment of the mA and/or kV according to patient size, radiation dose was kept as low as reasonably achievable t o obtain optimal diagnostic quality images. DICOM format image data is available electronically for review and comparison. FINDINGS: VERTEBRAE: Normal vertebral body height. ALIGNMENT: Approximately 3 mm, grade 1 anterolisthesis of L4 on L5. Paravertebral soft tissues: Partially imaged 2 mm and 4 mm are calyceal calcifications in the posterior left kidney. T12-L1: Mild diffuse disc bulge without significant central canal stenosis. Bony neural foramina are patent. L1-L2: Mild diffuse disc bulge with mild bilateral facet arthropathy. No significant central canal or bony n eural foraminal stenosis. L2-L3: Diffuse disc bulge with mild ligamentum flavum hypertrophy and facet arthropathy. Effacement of the a nterior thecal sac. Very mild caudal bilateral neural foraminal narrowing. L3-L4: Diffuse disc bulge, ligamentum flavum hypertrophy and mild bilateral facet arthropathy. Effacement of the anterior thecal sac. Mild caudal bilateral neural foraminal narrowing. L4-L5: Diffuse disc bulge with severe bilateral facet arthropathy, left greater than right with prominent os teophytes. There is effacement of the lateral recesses bilaterally secondary to the facet osteophytes . Mild bilateral neural foraminal narrowing primarily due to osteophytes. L5-S1: Disc space narrowing and vacuum disc phenomenon and diffuse disc bulge and posterior osteophytes. Mod erate bilateral facet arthropathy. Effacement of the anterior thecal sac. Moderate bilateral neural f oraminal narrowing secondary to osteophytes. CONCLUSION: 1. Multilevel degenerative spondylosis of the lumbar spine most prominently at L4-S1. There is very s evere facet arthropathy at L4-5. There is at least mild to moderate stenosis of the central canal at these levels with mild neural foraminal narrowing at L4-5 and moderate neural foraminal narrowing at L5-S1. Patient would benefit from MRI exam or CT myelography for further evaluation. Júnior Pearl MD on May 28, 2017 at 14:32 Board Certified Radiologist. This report was verified electronically.
[2017-05-28] MEDS ORDERED: METHOCARBAMOL 500 MG TAB PO ONE (15:00)
[2017-05-28 15:22] LABS: ACETAMINOPHEN LESS THAN 2.0 MCG/ML (10.0-30.0)
[2017-05-28 17:07] VITALS: BP 130/88; PULSE 98; RESP 20; O2SAT 98
[2017-05-28 18:00] VITALS: BP 123/82; PULSE 106; RESP 18; O2SAT 98
--- NOTE | 2017-05-28 18:13 | RADRPT ---
EXAM DATE/TIME: 05/28/2017 17:33 [facility] COMPARISON: CT LUMBAR SPINE W/O CONTRAST, May 28, 2017, 14:07. INDICATIONS : Back pain after fall 6 days ago. MEDICAL HISTORY : Myocardial infarction. SURGICAL HISTORY : Fusion, thoracic. Tonsillectomy. ENCOUNTER: Subsequent ACUITY: 4-6 days PAIN SCORE: 5/10 LOCATION: thoracic. TECHNIQUE: Multiplanar multisequence MRI of the lumbar spine was performed without contrast. FINDINGS: The most caudal appearing lumbar vertebra is numbered as L5. VERTEBRAE: There is slight degenerative type marrow signal change involving L5. Minimal anterolisthesis of L4 re lative to L5. CONUS: Normal level and configuration. T12-L1: Tiny broad left paracentral disc protrusion slightly indenting thecal sac in the lateral recess. No c anal or foraminal compromise. L1-L2: The thecal sac has a normal diameter. No evidence of disc bulge or protrusion. The neural foramina are patent bilaterally. L2-L3: Slight disc dehydration. Slight broad dorsal protrusion, most prominent centrally with slight indenta tion of the ventral thecal sac. Foramina are adequate. L3-L4: Slight disc dehydration. Minimal annular bulge with slight broad dorsal protrusion minimally indentin g thecal sac. No canal or foraminal compromise. L4-L5: No significant focal disc protrusion, canal or foraminal stenosis. Moderate posterior facet arthropat hy and ligamentous hypertrophy. L5-S1: The thecal sac has a normal diameter. No evidence of disc bulge or protrusion. The neural foramina are patent bilaterally. CONCLUSION: Slight spondylolisthesis at L4-5 which appears to relate to severe posterior facet disease. Small central disc protrusion at L2-3 and slight left paracentral disc protrusion at T12-L1, neither producing any significant anatomic compromise. See above discussion. Sunday Nascimento MD on May 28, 2017 at 18:07 Board Certified Radiologist. This report was verified electronically.
[2017-05-28] MEDS ORDERED: IBUP1TAB7 PO (18:45)
[2017-05-28] MEDS ORDERED: ROBA500T PO (18:45)
[2017-05-28] MEDS ORDERED: NORC5TAB PO (18:45)
[2017-05-28 20:48] VITALS: BP 146/82; PULSE 104; RESP 16; O2SAT 97
--- NOTE | 2017-05-28 21:27 | HHI.HP ---
HPI Service [facility] Hospitalists Primary Care Physician Unknown Admission Diagnosis Intractable back pain, increased debilitation, chronic back pain Diagnoses: Travel History International Travel<30 Days: No Contact w/Intl Traveler <30 Da: No Traveled to Known Affected Are: No History of Present Illness 47-year-old female with a past medical history significant for chronic back pain and hypertension presents to the emergency department for evaluation of weakness. The patient was discharged from [facility] on 05/26/17 where she was treated for pneumonia, hypertension and chronic back pain. She was discharged to a hotel because she is currently homeless. She reports that in the hotel she was unable to care for herself because she was too weak. She states she was unsteady on her feet and "her legs felt like Jell-O." She states she is unable to ambulate with her walker. She was discharged with antihypertensive medication when she was not taking because she thought maybe there was a mistake with her discharge medications. She denies any chest pain or shortness of breath. No nausea/vomiting/diarrhea/abdominal pain. No lateralizing signs/symptoms. No fevers/chills. The patient reports severe back pain, she states this is worse than her baseline. Review of Systems Except as stated in HPI: all other systems reviewed are Neg Past Family Social History Past Medical History Hypertension Chronic back pain Past Surgical History Tonsillectomy Left knee arthroscopically Back surgery 2 Reported Medications Reported Meds & Active Scripts Active [Budeson-Formot 160-4.5 Mcg Inh] 60 PUFF Aero 1 Puff INH Q12HR Norvasc (Amlodipine Besylate) 10 Mg Tab 10 Mg PO DAILY Propranolol (Propranolol HCl) 10 Mg Tab 10 Mg PO Q8HR Levaquin (Levofloxacin) 500 Mg Tablet 500 Mg PO DAILY Walker with Front Wheels (Device) 1 Mis Mis Ea .XX DIRECTED Reported Methocarbamol 500 Mg Tab 500 Mg PO TID Allergies: Coded Allergies: cyclobenzaprine (Verified Allergy, Severe, Hallucinations, 05/28/17) Uncoded Allergies: BANDAID (Allergy, Intermediate, Irritation, 05/10/17) STATES SKIN EMACERATES(?) UNDER THE GLUE OF THE BANDAID Family History Both parents with coronary artery disease. Father with DM. Social History Denies alcohol, tobacco and illicit drugs. Physical Exam Vital Signs Vital Signs Date Time Temp Pulse Resp B/P (MAP) Pulse Ox O2 Delivery O2 Flow Rate FiO2 05/28/17 20:48 104 16 146/82 (103) 97 Room Air 05/28/17 19:20 16 05/28/17 18:00 106 18 123/82 (96) 98 Room Air 05/28/17 17:07 98 20 130/88 (102) 98 Room Air 05/28/17 10:32 98.5 125 24 138/86 (103) 97 Physical Exam GENERAL: Tearful, female lying in bed SKIN: No rashes, ecchymoses or lesions. Cool and dry. HEAD: Atraumatic. Normocephalic. No temporal or scalp tenderness. EYES: Pupils equal round and reactive. Extraocular motions intact. No scleral icterus. No injection or drainage. ENT: Nose without bleeding, purulent drainage or septal hematoma. Throat without erythema, tonsillar hypertrophy or exudate. Uvula midline. Airway patent. NECK: Trachea midline. No JVD or lymphadenopathy. Supple, nontender, no meningeal signs. CARDIOVASCULAR: Regular rate and rhythm without murmurs, gallops, or rubs. RESPIRATORY: Clear to auscultation. Breath sounds equal bilaterally. No wheezes , rales, or rhonchi. GASTROINTESTINAL: Abdomen soft, non-tender, nondistended. No hepato-splenomegaly , or palpable masses. No guarding. MUSCULOSKELETAL: Extremities without clubbing, cyanosis, or edema. No joint tenderness, effusion, or edema noted. No calf tenderness. NEUROLOGICAL: Awake and alert. Cranial nerves II through XII intact. Motor and sensory grossly within normal limits. Normal speech. Laboratory Laboratory Tests Test 05/28/17 10:56 White Blood Count 10.1 Red Blood Count 4.62 Hemoglobin 11.0 Hematocrit 34.1 Mean Corpuscular Volume 73.7 Mean Corpuscular Hemoglobin 23.9 Mean Corpuscular Hemoglobin Concent 32.4 Red Cell Distribution Width 17.8 Platelet Count 840 Mean Platelet Volume 7.3 Neutrophils (%) (Auto) 73.7 Lymphocytes (%) (Auto) 19.3 Monocytes (%) (Auto) 5.3 Eosinophils (%) (Auto) 0.8 Basophils (%) (Auto) 0.9 Neutrophils # (Auto) 7.4 Lymphocytes # (Auto) 1.9 Monocytes # (Auto) 0.5 Eosinophils # (Auto) 0.1 Basophils # (Auto) 0.1 CBC Comment DIFF FINAL Differential Comment Blood Urea Nitrogen 14 Creatinine 0.82 Random Glucose 94 Total Protein 9.1 Albumin 2.9 Calcium Level 9.7 Alkaline Phosphatase 125 Aspartate Amino Transf (AST/SGOT) 16 Alanine Aminotransferase (ALT/SGPT) 11 Total Bilirubin 0.5 Sodium Level 134 Potassium Level 3.6 Chloride Level 97 Carbon Dioxide Level 27.7 Anion Gap 9 Estimat Glomerular Filtration Rate 75 Salicylates Level LESS THAN 1.7 Acetaminophen Level LESS THAN 2.0 Ethyl Alcohol Level LESS THAN 3 Result Diagram: 05/28/17 1056 05/28/17 1056 Caprinseema VTE Risk Assessment Gilbertrini VTE Risk Assessment: No/Low Risk (score <= 1) Caprini Risk Assessment Model Point Value = 1 Point Value = 2 Point Value = 3 Point Value = 5 Age 41-60 Minor surgery BMI > 25 kg/m2 Swollen legs Varicose veins or History of unexplained or recurrent spontaneous Oral contraceptives or hormone replacement Sepsis (< 1 month) Serious lung disease, including pneumonia (< 1 month) Abnormal pulmonary function Acute myocardial infarction Congestive heart failure (< 1 month) History of inflammatory bowel disease Medical patient at bed rest Age 61-74 Arthroscopic surgery Major open surgery (> 45 min) Laparoscopic surgery (> 45 min) Malignancy Confined to bed (> 72 hours) Immobilizing plaster cast Central venous access Age >= 75 History of VTE Family history of VTE Factor V Leiden Prothrombin [id number] Lupus anticoagulant Anticardiolipin antibodies Elevated serum homocysteine Heparin-induced thrombocytopenia Other congenital or acquired thrombophilia Stroke (< 1 month) Elective arthroplasty Hip, pelvis, or leg fracture Acute spinal cord injury (< 1 month) Prophylaxis Regimen Total Risk Factor Score Risk Level Prophylaxis Regimen 0-1 Low Early ambulation 2 Moderate Order ONE of the following: *Sequential Compression Device (SCD) *Heparin 5000 units SQ BID 3-4 Higher Order ONE of the following medications: *Heparin 5000 units SQ TID *Enoxaparin/Lovenox 40 mg SQ daily (WT < 150 kg, CrCl > 30 mL/min) *Enoxaparin/Lovenox 30 mg SQ daily (WT < 150 kg, CrCl > 10-29 mL/min) *Enoxaparin/Lovenox 30 mg SQ BID (WT < 150 kg, CrCl > 30 mL/min) AND/OR *Sequential Compression Device (SCD) 5 or more Highest Order ONE of the following medications: *Heparin 5000 units SQ TID (Preferred with Epidurals) *Enoxaparin/Lovenox 40 mg SQ daily (WT < 150 kg, CrCl > 30 mL/min) *Enoxaparin/Lovenox 30 mg SQ daily (WT < 150 kg, CrCl > 10-29 mL/min) *Enoxaparin/Lovenox 30 mg SQ BID (WT < 150 kg, CrCl > 30 mL/min) AND *Sequential Compression Device (SCD) Assessment and Plan Assessment and Plan Assessment/plan: 1. Unsafe discharge Patient reports she does not have any vertigo or anyone to care for her Case management consulted, appreciate assistance 2. Chronic back pain Patient states she is out of her home opiate medication Baclofen and Tylenol PT consulted 3. Hypertension Resume antihypertensive medications that were started during previous hospitalization FEN Regular diet Electrolytes: Monitor and replete as needed Letty Pal MD May 28, 2017 21:27
[2017-05-28] MEDS ORDERED: NALOXONE HCL 0.4 MG/ML AMP IV PUSH PRN (21:30)
[2017-05-28] MEDS ORDERED: SODIUM CHLORIDE 0.9% FLUSH 10 ML FLUSH IV FLUSH PRN (21:30)
[2017-05-28] MEDS ORDERED: ACETAMINOPHEN 325 MG TAB PO PRN (22:00)
[2017-05-28] MEDS ORDERED: MAGNESIUM HYDROXIDE SUSP 30 ML CUP PO PRN (22:00)
[2017-05-28] MEDS ORDERED: LACTULOSE SYRUP 20 GM/30 ML CUP PO PRN (22:00)
[2017-05-28] MEDS ORDERED: BISACODYL 10 MG SUPP RECTAL PRN (22:00)
[2017-05-28] MEDS ORDERED: SENNOSIDES 8.6 MG TAB PO PRN (22:00)
[2017-05-28] MEDS ORDERED: ONDANSETRON HCL 4 MG/2 ML VIAL IVP PRN (22:00)
[2017-05-28] MEDS: PROPRANOLOL HCL 10 MG TAB PO SCH (22:10)
[2017-05-28] MEDS: BACLOFEN 10 MG TAB PO SCH (22:10)
[2017-05-29 01:53] VITALS: BP 137/72; PULSE 92; RESP 16; O2SAT 98
[2017-05-29] MEDS: IBUPROFEN 600 MG TAB PO PRN ×2 (02:48→09:43)
[2017-05-29 04:24] VITALS: BP 138/92; PULSE 90; RESP 16; TEMP 98.4; O2SAT 98
[2017-05-29] MEDS: BACLOFEN 10 MG TAB PO SCH ×3 (06:30→20:55)
[2017-05-29] MEDS: PROPRANOLOL HCL 10 MG TAB PO SCH ×3 (06:30→20:55)
[2017-05-29 08:16] VITALS: BP 118/92; PULSE 102; RESP 20; TEMP 98.6; O2SAT 96
[2017-05-29] MEDS: BUDESONIDE-FORMOTEROL 160/4.5 MCG INHALER INH SCH ×2 (09:00→20:54)
[2017-05-29] MEDS: SODIUM CHLORIDE 0.9% FLUSH 10 ML FLUSH IV FLUSH SCH ×2 (09:00→20:54)
[2017-05-29] MEDS: DOCUSATE SODIUM 50 MG/SENNA 8.6 MG TAB PO SCH ×2 (09:43→20:55)
--- NOTE | 2017-05-29 11:48 | HHI.PR ---
Subjective Remarks in no acute distress. feels weak. otherwise no other complaints. d/w the RN. Objective Vitals Vital Signs Date Time Temp Pulse Resp B/P (MAP) Pulse Ox O2 Delivery O2 Flow Rate FiO2 05/29/17 08:16 98.6 102 20 118/92 (101) 96 05/29/17 04:24 98.4 90 16 138/92 (107) 98 Room Air 05/29/17 04:24 16 05/29/17 01:53 92 16 137/72 (93) 98 Room Air 05/28/17 20:48 104 16 146/82 (103) 97 Room Air 05/28/17 19:20 16 05/28/17 18:00 106 18 123/82 (96) 98 Room Air 05/28/17 17:07 98 20 130/88 (102) 98 Room Air I/O 05/28/17 05/28/17 05/28/17 05/29/17 05/29/17 05/29/17 07:00 15:00 23:00 07:00 15:00 23:00 Intake Total 420 ml Balance 420 ml Intake Oral 420 ml Result Diagram: 05/28/17 1056 05/28/17 1056 Imaging Last Impressions Chest X-Ray 05/28/17 1220 Signed Impressions: Service Date/Time: Sunday, May 28, 2017 13:10 - CONCLUSION: Negative for acute process. Lungs under aerated but clear. Paulino Bonilla MD FACR Lumbar Spine MRI 05/28/17 0000 Signed Impressions: Service Date/Time: Sunday, May 28, 2017 17:33 - CONCLUSION: Slight spondylolisthesis at L4-5 which appears to relate to severe posterior facet disease. Small central disc protrusion at L2-3 and slight left paracentral disc protrusion at T12-L1, neither producing any significant anatomic compromise. See above discussion. Sunday Nascimento MD Lumbar Spine CT 05/28/17 0000 Signed Impressions: Service Date/Time: Sunday, May 28, 2017 14:07 - CONCLUSION: 1. Multilevel degenerative spondylosis of the lumbar spine most prominently at L4-S1. There is very severe facet arthropathy at L4-5. There is at least mild to moderate stenosis of the central canal at these levels with mild neural foraminal narrowing at L4-5 and moderate neural foraminal narrowing at L5-S1. Patient would benefit from MRI exam or CT myelography for further evaluation. Júnior Pearl MD Objective Remarks GENERAL: This is a well-nourished, well-developed patient, in no apparent distress. CARDIOVASCULAR: Regular rate and regular rhythm without murmurs, gallops, or rubs. RESPIRATORY: Clear to auscultation. Breath sounds equal bilaterally. No wheezes , rales, or rhonchi. GASTROINTESTINAL: Abdomen soft, non-tender, nondistended. Normal, active bowel sounds MUSCULOSKELETAL: Extremities without clubbing, cyanosis, or edema. NEURO: Alert & Oriented x4 to person, place, time, situation. Moves all ext x4 Medications and IVs Inpatient Medications Acetaminophen (Tylenol) 650 mg Q4H PRN PO TEMP > 100.4, pain; Start 05/28/17 at 22:00 Acetaminophen/ Hydrocodone Bitart ([place] 5-325 Mg) 1 tab ONCE ONCE PO Last administered on 05/28/17at 13:54; Start 05/28/17 at 13:15; Stop 05/28/17 at 13:16 ; Status DC Amlodipine Besylate (Norvasc) 10 mg DAILY PO Last administered on 05/29/17at 09: 43; Start 05/29/17 at 09:00 Baclofen (Lioresal) 10 mg Q8HR PO Last administered on 05/29/17at 06:30; Start 05/28/17 at 22:00 Bisacodyl (Dulcolax Supp) 10 mg DAILY PRN RECTAL SEVERE CONSITIPATION; Start at 22:00 Budesonide/ Formoterol Fumarate (Symbicort 160-4.5 Mcg Inh) 1 puff Q12HR INH ; Start 05/29/17 at 09:00 Ibuprofen (Motrin) 600 mg Q6H PRN PO PAIN SCALE 6 TO 10 Last administered on at 09:43; Start 05/29/17 at 02:45 Lactulose (Lactulose Liq) 30 ml DAILY PRN PO SEVERE CONSITIPATION; Start at 22:00 Magnesium Hydroxide (Milk Of Magnesia Liq) 30 ml Q12H PRN PO Mild constipation ; Start 05/28/17 at 22:00 Methocarbamol (Robaxin) 500 mg ONCE ONCE PO Last administered on 05/28/17at 15: 11; Start 05/28/17 at 15:00; Stop 05/28/17 at 15:01; Status DC Naloxone HCl (Narcan Inj) 0.4 mg UNSCH PRN IV PUSH SEE LABEL COMMENTS; Start at 21:30 Ondansetron HCl (Zofran Inj) 4 mg Q6H PRN IVP NAUSEA OR VOMITING; Start at 22:00 Propranolol HCl (Inderal) 10 mg Q8HR PO Last administered on 05/29/17at 06:30; Start 05/28/17 at 22:00 Senna/Docusate Sodium (Libia-Colace) 1 tab BID PO Last administered on at 09:43; Start 05/29/17 at 09:00 Sennosides (Senokot) 17.2 mg Q12H PRN PO Moderate constipation; Start 05/28/17 at 22:00 Sodium Chloride (NS Flush) 2 ml BID IV FLUSH ; Start 05/29/17 at 09:00 A/P Assessment and Plan 1. Unsafe discharge Patient reports she does not have r anyone to care for her Case management consulted, appreciate assistance 2. Chronic back pain Patient states she is out of her home opiate medication Baclofen and Tylenol PT consulted 3. Hypertension Resumed antihypertensive medications that were started during previous hospitalization Discharge Planning case management consulted for dc planning. Dennis Babb MD May 29, 2017 11:48
[2017-05-29 12:31] LABS: AUTOMATED NEUTROPHIL # 7.1 TH/MM3 (1.8-7.7); BASOPHIL # 0.1 TH/MM3 (0-0.2); BASOPHIL % 0.8 % (0.0-2.0); BICARBONATE 26.7 MEQ/L (21.0-32.0); CALCIUM 9.5 MG/DL (8.5-10.1); CREATININE 0.76 MG/DL (0.50-1.00); EOSINOPHIL # 0.2 TH/MM3 (0-0.4); HEMOGLOBIN 11.1 GM/DL (11.6-15.3); LYMPH % 24.7 % (9.0-44.0); LYMPHOCYTE # 2.8 TH/MM3 (1.0-4.8); MEAN CELL VOLUME 74.2 FL (80.0-100.0); MEAN CORPUSCULAR HEMOGLOBIN 23.6 PG (27.0-34.0); MEAN CORPUSCULAR HGB CONC 31.7 % (32.0-36.0); MEAN PLATELET VOLUME 7.5 FL (7.0-11.0); MONO % 8.7 % (0.0-8.0); NEUT % 63.8 % (16.0-70.0); PLATELET COUNT 688 TH/MM3 (150-450); RED BLOOD COUNT 4.71 MIL/MM3 (4.00-5.30); RED CELL DISTRIBUTION WIDTH 18.1 % (11.6-17.2); WHITE BLOOD COUNT 11.2 TH/MM3 (4.0-11.0)
[2017-05-29 13:01] VITALS: BP 112/70; PULSE 90; RESP 19; TEMP 97; O2SAT 92
[2017-05-29 16:28] VITALS: BP 112/75; PULSE 84; RESP 18; TEMP 98.2; O2SAT 93
[2017-05-29 20:27] VITALS: BP 112/73; PULSE 84; RESP 18; TEMP 98.7; O2SAT 94
[2017-05-30 01:10] VITALS: BP 112/83; PULSE 88; RESP 16; TEMP 98.7; O2SAT 95
[2017-05-30 03:57] VITALS: BP 129/88; PULSE 90; RESP 16; TEMP 97.7; O2SAT 96
[2017-05-30] MEDS: PROPRANOLOL HCL 10 MG TAB PO SCH ×3 (06:16→22:26)
[2017-05-30] MEDS: BACLOFEN 10 MG TAB PO SCH ×3 (06:17→22:26)
[2017-05-30 08:43] LABS: AUTOMATED NEUTROPHIL # 5.8 TH/MM3 (1.8-7.7); BASOPHIL # 0.1 TH/MM3 (0-0.2); BASOPHIL % 0.6 % (0.0-2.0); EOSINOPHIL # 0.2 TH/MM3 (0-0.4); EOSINOPHIL % 1.9 % (0.0-4.0); HEMOGLOBIN 10.8 GM/DL (11.6-15.3); LYMPH % 23.4 % (9.0-44.0); MEAN CELL VOLUME 73.6 FL (80.0-100.0); MEAN CORPUSCULAR HEMOGLOBIN 24.1 PG (27.0-34.0); MEAN CORPUSCULAR HGB CONC 32.8 % (32.0-36.0); MEAN PLATELET VOLUME 7.4 FL (7.0-11.0); MONO % 7.6 % (0.0-8.0); MONOCYTE # 0.7 TH/MM3 (0-0.9); NEUT % 66.5 % (16.0-70.0); PLATELET COUNT 671 TH/MM3 (150-450); RED BLOOD COUNT 4.49 MIL/MM3 (4.00-5.30); WHITE BLOOD COUNT 8.7 TH/MM3 (4.0-11.0)
[2017-05-30] MEDS: SODIUM CHLORIDE 0.9% FLUSH 10 ML FLUSH IV FLUSH SCH ×2 (09:00→21:00)
[2017-05-30] MEDS: DOCUSATE SODIUM 50 MG/SENNA 8.6 MG TAB PO SCH ×2 (09:00→21:00)
[2017-05-30] MEDS: BUDESONIDE-FORMOTEROL 160/4.5 MCG INHALER INH SCH ×2 (09:40→22:29)
--- NOTE | 2017-05-30 10:13 | HHI.PR ---
Subjective Remarks Follow up for fall, back pain. The patient reports continued diffuse low back pain, unchanged compared to previous. She is requesting something stronger than ibuprofen, had long discussion will only treat with NSAIDs and needs to obtain f /up with pain management as outpatient. Patient verbalized understanding. RN reported patient was able to get out of bed yesterday and pivot to bedside commode. Patient has not yet attempted to get out of bed today. Discussed with PT to re-evaluate. Objective Vitals Vital Signs Date Time Temp Pulse Resp B/P (MAP) Pulse Ox O2 Delivery O2 Flow Rate FiO2 05/30/17 03:57 97.7 90 16 129/88 (102) 96 05/30/17 01:10 98.7 88 16 112/83 (93) 95 05/29/17 20:27 98.7 84 18 112/73 (86) 94 05/29/17 16:28 98.2 84 18 112/75 (87) 93 05/29/17 13:01 97.0 90 19 112/70 (84) 92 I/O 05/29/17 05/29/17 05/29/17 05/30/17 05/30/17 05/30/17 07:00 15:00 23:00 07:00 15:00 23:00 # Voids 1 Result Diagram: 05/30/17 0818 05/29/17 1154 Imaging Last Impressions Chest X-Ray 05/28/17 1220 Signed Impressions: Service Date/Time: Sunday, May 28, 2017 13:10 - CONCLUSION: Negative for acute process. Lungs under aerated but clear. Paulino Bonilla MD FACR Lumbar Spine MRI 05/28/17 0000 Signed Impressions: Service Date/Time: Sunday, May 28, 2017 17:33 - CONCLUSION: Slight spondylolisthesis at L4-5 which appears to relate to severe posterior facet disease. Small central disc protrusion at L2-3 and slight left paracentral disc protrusion at T12-L1, neither producing any significant anatomic compromise. See above discussion. Sunday Nascimento MD Lumbar Spine CT 05/28/17 0000 Signed Impressions: Service Date/Time: Sunday, May 28, 2017 14:07 - CONCLUSION: 1. Multilevel degenerative spondylosis of the lumbar spine most prominently at L4-S1. There is very severe facet arthropathy at L4-5. There is at least mild to moderate stenosis of the central canal at these levels with mild neural foraminal narrowing at L4-5 and moderate neural foraminal narrowing at L5-S1. Patient would benefit from MRI exam or CT myelography for further evaluation. Júnior Pearl MD Objective Remarks GENERAL: Well-nourished, well-developed middle aged female patient in [employer]. SKIN: Warm and dry. No rash. HEENT: Normocephalic. Atraumatic.Pupils equal and round. Mucous membranes pink and moist. NECK: Supple. Trachea midline. CARDIOVASCULAR: Regular rate and rhythm. No murmur appreciated. RESPIRATORY: No accessory muscle use. Clear to auscultation. Breath sounds equal bilaterally. GASTROINTESTINAL: Abdomen soft, non-tender, nondistended. Normoactive bowel sounds x4. MUSCULOSKELETAL: No obvious deformities. Extremities without clubbing, cyanosis , or edema. NEUROLOGICAL: Awake and alert. No obvious cranial nerve deficits. Motor grossly within normal limits. 5/5 muscle strength in bilateral upper and lower extremities. Normal speech. PSYCHIATRIC: Appropriate mood and affect; insight and judgment normal. Medications and IVs Current Medications Medications (Trade) Dose Ordered Sig/Pricila Route Start Time Stop Time Status Last Admin (Lioresal) 10 mg Q8HR PO 05/28/17 22:00 05/30/17 06:17 (NS Flush) 2 ml UNSCH PRN IV FLUSH 05/28/17 21:30 (NS Flush) 2 ml BID IV FLUSH 05/29/17 09:00 (Tylenol) 650 mg Q4H PRN PO 05/28/17 22:00 (Zofran Inj) 4 mg Q6H PRN IVP 05/28/17 22:00 (Narcan Inj) 0.4 mg UNSCH PRN IV PUSH 05/28/17 21:30 (Libia-Colace) 1 tab BID PO 05/29/17 09:00 05/29/17 09:43 (Milk Of Magnesia Liq) 30 ml Q12H PRN PO 05/28/17 22:00 (Senokot) 17.2 mg Q12H PRN PO 05/28/17 22:00 (Dulcolax Supp) 10 mg DAILY PRN RECTAL 05/28/17 22:00 (Lactulose Liq) 30 ml DAILY PRN PO 05/28/17 22:00 (Norvasc) 10 mg DAILY PO 05/29/17 09:00 05/30/17 09:39 (Inderal) 10 mg Q8HR PO 05/28/17 22:00 05/30/17 06:16 (Symbicort 160-4.5 Mcg Inh) 1 puff Q12HR INH 05/29/17 09:00 05/30/17 09:40 (Toradol) 10 mg Q6H PRN PO 05/30/17 11:15 06/04/17 11:14 (Lidoderm 5% Patch.12 Hr) 1 patch DAILY T-DERMAL 05/30/17 11:45 UNV A/P Assessment and Plan 47-year-old female with a past medical history significant for chronic back pain and hypertension presents to the emergency department for evaluation of weakness. The patient was discharged from [facility] on 05/26/17 where she was treated for pneumonia, hypertension and chronic back pain. She was discharged to a hotel because she is currently homeless. She reports that in the hotel she was unable to care for herself because she was too weak. She states she was unsteady on her feet and "her legs felt like Jell-O." She states she is unable to ambulate with her walker. Unsafe discharge: patient reports she does not have anyone to care for her. -Case management consulted to assist with discharge planning, appreciate assistance Chronic back pain: Patient states she is out of her home opiate medication, reviewed records, last dilaudid refill was in Oct 2016, then [place] 15tabs in , then [place] 14tabs in April2017. -Lumbar MRI reviewed, shows slight spondylolisthesis at L4-5 which appears to relate to severe posterior facet disease; small central disc protrusion at L2 -3 and slight left paracentral disc protrusion at T12-L1, neither producing any significant anatomic compromise -Continue baclofen for spasms -Patient requesting different pain medication other than ibuprofen, will give toradol 10mg q6h x5days -Patient strongly encouraged to return to pain management upon discharge -PT consulted, currently recommending rehab, unless she is able to do transfer with walker, then can dc to detention -Case management consulted for d/c planning -Continue daily PT -add lidoderm patch Hypertension -Resumed antihypertensive medications that were started during previous hospitalization -On propranolol 10mg q8h and norvasc 10mg daily -BP well controlled, continue to monitor DVT Prophylaxis: teds/SCDs Discharge Planning Discharge when patient able to perform transfers with walker. Case management to assist with discharge planning. Lea King PA-C May 30, 2017 10:13 am
[2017-05-30 12:40] VITALS: BP 130/86; PULSE 76; RESP 20; TEMP 97.9; O2SAT 96
[2017-05-30] MEDS: LIDOCAINE HCL 5% PATCH T-DERMAL SCH (13:39)
[2017-05-30] MEDS: KETOROLAC TROMETHAMINE 10 MG TAB PO PRN ×2 (13:39→22:27)
[2017-05-30 16:54] VITALS: BP 120/90; PULSE 80; RESP 20; TEMP 97.9; O2SAT 96
[2017-05-30 22:22] VITALS: BP 121/76; PULSE 98; RESP 18; TEMP 98.1; O2SAT 95
[2017-05-31 00:31] VITALS: BP 135/83; PULSE 89; RESP 18; TEMP 98.7; O2SAT 94
[2017-05-31 05:05] VITALS: BP 134/83; PULSE 104; RESP 20; O2SAT 96
[2017-05-31] MEDS: KETOROLAC TROMETHAMINE 10 MG TAB PO PRN ×2 (05:36→11:32)
[2017-05-31] MEDS: PROPRANOLOL HCL 10 MG TAB PO SCH ×4 (05:36→21:49)
[2017-05-31] MEDS: BACLOFEN 10 MG TAB PO SCH ×3 (05:37→21:47)
--- NOTE | 2017-05-31 08:26 | HHI.PR ---
Subjective Remarks Follow up for fall, back pain. The patient reports continued low back pain and weakness of bilateral legs secondary to the pain. Denies any numbness/tingling of distal lower extremities. She does believe her symptoms are overall improving. She states she was able to get up to the bedside commode by herself yesterday. Instructed to call [facility] WE[facility]HER/RN for assistance prior to attempting ambulation on her own. She has not yet attempted ambulation today. The patient has no other medical complaints at this time. Objective Vitals Vital Signs Date Time Temp Pulse Resp B/P (MAP) Pulse Ox O2 Delivery O2 Flow Rate FiO2 05/31/17 05:05 104 20 134/83 (100) 96 05/31/17 00:31 98.7 89 18 135/83 (100) 94 05/30/17 22:22 98.1 98 18 121/76 (91) 95 05/30/17 17:09 22 05/30/17 16:54 97.9 80 20 120/90 (100) 96 05/30/17 12:40 97.9 76 20 130/86 (101) 96 Result Diagram: 05/30/17 0818 05/29/17 1154 Imaging Last Impressions Chest X-Ray 05/28/17 1220 Signed Impressions: Service Date/Time: Sunday, May 28, 2017 13:10 - CONCLUSION: Negative for acute process. Lungs under aerated but clear. Paulino Bonilla MD FACR Lumbar Spine MRI 05/28/17 0000 Signed Impressions: Service Date/Time: Sunday, May 28, 2017 17:33 - CONCLUSION: Slight spondylolisthesis at L4-5 which appears to relate to severe posterior facet disease. Small central disc protrusion at L2-3 and slight left paracentral disc protrusion at T12-L1, neither producing any significant anatomic compromise. See above discussion. Sunday Nascimento MD Lumbar Spine CT 05/28/17 0000 Signed Impressions: Service Date/Time: Sunday, May 28, 2017 14:07 - CONCLUSION: 1. Multilevel degenerative spondylosis of the lumbar spine most prominently at L4-S1. There is very severe facet arthropathy at L4-5. There is at least mild to moderate stenosis of the central canal at these levels with mild neural foraminal narrowing at L4-5 and moderate neural foraminal narrowing at L5-S1. Patient would benefit from MRI exam or CT myelography for further evaluation. Júnior Pearl MD Objective Remarks GENERAL: Well-nourished, well-developed middle aged female patient in [employer]. SKIN: Warm and dry. No rash. HEENT: Normocephalic. Atraumatic.Pupils equal and round. Mucous membranes pink and moist. NECK: Supple. Trachea midline. CARDIOVASCULAR: Regular rate and rhythm. No murmur appreciated. RESPIRATORY: No accessory muscle use. Clear to auscultation. Breath sounds equal bilaterally. GASTROINTESTINAL: Abdomen soft, non-tender, nondistended. Normoactive bowel sounds x4. MUSCULOSKELETAL: No obvious deformities. Extremities without clubbing, cyanosis , or edema. NEUROLOGICAL: Awake and alert. No obvious cranial nerve deficits. Motor grossly within normal limits. 5/5 muscle strength in bilateral upper and lower extremities. Normal speech. PSYCHIATRIC: Appropriate mood and affect; insight and judgment normal. Medications and IVs Current Medications Medications (Trade) Dose Ordered Sig/Pricila Route Start Time Stop Time Status Last Admin (Lioresal) 10 mg Q8HR PO 05/28/17 22:00 05/31/17 05:37 (NS Flush) 2 ml UNSCH PRN IV FLUSH 05/28/17 21:30 (NS Flush) 2 ml BID IV FLUSH 05/29/17 09:00 05/31/17 08:47 (Tylenol) 650 mg Q4H PRN PO 05/28/17 22:00 (Zofran Inj) 4 mg Q6H PRN IVP 05/28/17 22:00 (Narcan Inj) 0.4 mg UNSCH PRN IV PUSH 05/28/17 21:30 (Libia-Colace) 1 tab BID PO 05/29/17 09:00 05/29/17 09:43 (Milk Of Magnesia Liq) 30 ml Q12H PRN PO 05/28/17 22:00 (Senokot) 17.2 mg Q12H PRN PO 05/28/17 22:00 (Dulcolax Supp) 10 mg DAILY PRN RECTAL 05/28/17 22:00 (Lactulose Liq) 30 ml DAILY PRN PO 05/28/17 22:00 (Norvasc) 10 mg DAILY PO 05/29/17 09:00 05/31/17 08:47 (Inderal) 10 mg Q8HR PO 05/28/17 22:00 05/31/17 05:36 (Symbicort 160-4.5 Mcg Inh) 1 puff Q12HR INH 05/29/17 09:00 05/31/17 08:46 (Toradol) 10 mg Q6H PRN PO 05/30/17 11:15 06/04/17 11:14 05/31/17 05:36 (Lidoderm 5% Patch.12 Hr) 1 patch DAILY T-DERMAL 05/30/17 13:00 05/31/17 08:49 A/P Assessment and Plan 47-year-old female with a past medical history significant for chronic back pain and hypertension presents to the emergency department for evaluation of weakness. The patient was discharged from [facility] on 05/26/17 where she was treated for pneumonia, hypertension and chronic back pain. She was discharged to a hotel because she is currently homeless. She reports that in the hotel she was unable to care for herself because she was too weak. She states she was unsteady on her feet and "her legs felt like Jell-O." She states she is unable to ambulate with her walker. Unsafe discharge: patient reports she does not have anyone to care for her. -Case management consulted to assist with discharge planning, appreciate assistance Chronic back pain: Patient states she is out of her home opiate medication, reviewed records, last dilaudid refill was in Oct 2016, then [place] 15tabs in , then [place] 14tabs in April2017. -Lumbar MRI reviewed, shows slight spondylolisthesis at L4-5 which appears to relate to severe posterior facet disease; small central disc protrusion at L2 -3 and slight left paracentral disc protrusion at T12-L1, neither producing any significant anatomic compromise -Continue baclofen for spasms -Patient requesting different pain medication other than ibuprofen, will give toradol 10mg q6h x5days -Patient strongly encouraged to return to pain management upon discharge -PT consulted, currently recommending rehab, unless she is able to do transfer with walker, then can dc to long term -Case management consulted for d/c planning -Continue daily PT, and consult OT -continue lidoderm patch Hypertension -Resumed antihypertensive medications that were started during previous hospitalization -On propranolol 10mg q8h and norvasc 10mg daily -BP well controlled, continue to monitor DVT Prophylaxis: teds/SCDs Discharge Planning Discharge when patient able to perform transfers with walker. Case management to assist with discharge planning. Lea King PA-C May 31, 2017 8:26 am
[2017-05-31 08:39] VITALS: BP 118/85; PULSE 87; RESP 18; TEMP 98.4; O2SAT 93
[2017-05-31] MEDS: BUDESONIDE-FORMOTEROL 160/4.5 MCG INHALER INH SCH ×2 (08:46→21:48)
[2017-05-31] MEDS: SODIUM CHLORIDE 0.9% FLUSH 10 ML FLUSH IV FLUSH SCH ×2 (08:47→21:47)
[2017-05-31] MEDS: DOCUSATE SODIUM 50 MG/SENNA 8.6 MG TAB PO SCH ×2 (08:47→21:47)
[2017-05-31] MEDS: LIDOCAINE HCL 5% PATCH T-DERMAL SCH (08:49)
[2017-05-31] MEDS ORDERED: KETO10 PO (11:45)
[2017-05-31] MEDS ORDERED: BACL10TA PO (11:45)
--- NOTE | 2017-05-31 11:46 | HHI.DCPOC ---
Discharge Care Plan Diagnosis: (1) Chronic back pain Goals to Promote Your Health * To prevent worsening of your condition and complications * To maintain your health at the optimal level Directions to Meet Your Goals Take your medications as prescribed Follow your dietary instruction Follow activity as directed Keep your appointments as scheduled Take your immunizations and boosters as scheduled If your symptoms worsen call your PCP, if no PCP go to Urgent Care Center or Emergency Room Smoking is Dangerous to Your Health. Avoid second hand smoke Call the 24-hour hour crisis hotline for domestic abuse at Lea King PA-C May 31, 2017 11:46 am
[2017-05-31] MEDS ORDERED: WHEEMIS3 (11:47)
[2017-05-31] MEDS ORDERED: COMMODE BEDSIDE1 MI1 (11:47)
[2017-05-31 12:06] VITALS: BP 126/77; PULSE 103; RESP 20; TEMP 97.6; O2SAT 95
[2017-05-31 16:29] VITALS: BP 123/67; PULSE 100; RESP 18; TEMP 99.8; O2SAT 93
[2017-05-31 20:18] VITALS: BP 92/50; PULSE 118; RESP 17; TEMP 98.7; O2SAT 97
[2017-06-01 01:03] VITALS: BP 97/53; PULSE 118; RESP 16; TEMP 99.7; O2SAT 94
[2017-06-01 03:57] VITALS: BP 99/56; PULSE 117; RESP 17; TEMP 98.9; O2SAT 91
[2017-06-01] MEDS: BACLOFEN 10 MG TAB PO SCH ×3 (06:32→21:23)
[2017-06-01] MEDS: PROPRANOLOL HCL 10 MG TAB PO SCH ×3 (06:32→21:23)
[2017-06-01 07:27] VITALS: BP 92/51; PULSE 101; RESP 18; TEMP 99.8; O2SAT 93
[2017-06-01] MEDS: BUDESONIDE-FORMOTEROL 160/4.5 MCG INHALER INH SCH ×2 (08:35→21:24)
[2017-06-01] MEDS: LIDOCAINE HCL 5% PATCH T-DERMAL SCH (08:36)
[2017-06-01] MEDS: DOCUSATE SODIUM 50 MG/SENNA 8.6 MG TAB PO SCH ×2 (08:36→21:23)
[2017-06-01] MEDS: SODIUM CHLORIDE 0.9% FLUSH 10 ML FLUSH IV FLUSH SCH ×2 (08:37→21:23)
--- NOTE | 2017-06-01 08:40 | HHI.PR ---
Subjective Remarks Follow up for fall, back pain. The patient reports she continued to be able to transfer from bed to bedside commode independently. Noted low grade fevers overnight, Tmax 99.8. Patient endorses cough, occasionally productive of yellow sputum. Denies any chest pain or shortness of breath. Denies any abdominal pain , nausea/vomiting, diarrhea, or urinary complaints. She states she is going to stay with her son upon discharge. Objective Vitals Vital Signs Date Time Temp Pulse Resp B/P (MAP) Pulse Ox O2 Delivery O2 Flow Rate FiO2 06/01/17 07:27 99.8 101 18 92/51 (65) 93 06/01/17 03:57 98.9 117 17 99/56 (70) 91 06/01/17 01:03 99.7 118 16 97/53 (68) 94 05/31/17 20:18 98.7 118 17 92/50 (64) 97 05/31/17 16:29 99.8 100 18 123/67 (85) 93 05/31/17 12:06 97.6 103 20 126/77 (93) 95 Result Diagram: 05/30/17 0818 05/29/17 1154 Imaging Last Impressions Chest X-Ray 06/01/17 0000 Signed Impressions: Service Date/Time: Thursday, June 01, 2017 09:07 - CONCLUSION: 1. Stable appearance with no definite acute cardiopulmonary disease. 2. Midinspiratory study with stable elevation of right hemidiaphragm and mild motion artifact. Fernando Chirinos MD Lumbar Spine MRI 05/28/17 0000 Signed Impressions: Service Date/Time: Sunday, May 28, 2017 17:33 - CONCLUSION: Slight spondylolisthesis at L4-5 which appears to relate to severe posterior facet disease. Small central disc protrusion at L2-3 and slight left paracentral disc protrusion at T12-L1, neither producing any significant anatomic compromise. See above discussion. Sunday Nascimento MD Lumbar Spine CT 05/28/17 0000 Signed Impressions: Service Date/Time: Sunday, May 28, 2017 14:07 - CONCLUSION: 1. Multilevel degenerative spondylosis of the lumbar spine most prominently at L4-S1. There is very severe facet arthropathy at L4-5. There is at least mild to moderate stenosis of the central canal at these levels with mild neural foraminal narrowing at L4-5 and moderate neural foraminal narrowing at L5-S1. Patient would benefit from MRI exam or CT myelography for further evaluation. Júnior Pearl MD Objective Remarks GENERAL: Well-nourished, well-developed middle aged female patient in [facility]. SKIN: Warm and dry. No rash. HEENT: Normocephalic. Atraumatic.Pupils equal and round. Mucous membranes pink and moist. NECK: Supple. Trachea midline. CARDIOVASCULAR: Regular rate and rhythm. No murmur appreciated. RESPIRATORY: No accessory muscle use. Clear to auscultation. Breath sounds equal bilaterally. GASTROINTESTINAL: Abdomen soft, non-tender, nondistended. Normoactive bowel sounds x4. MUSCULOSKELETAL: No obvious deformities. Extremities without clubbing, cyanosis , or edema. NEUROLOGICAL: Awake and alert. No obvious cranial nerve deficits. Motor grossly within normal limits. 5/5 muscle strength in bilateral upper and lower extremities. Normal speech. PSYCHIATRIC: Appropriate mood and affect; insight and judgment normal. Medications and IVs Current Medications Medications (Trade) Dose Ordered Sig/Pricila Route Start Time Stop Time Status Last Admin (Lioresal) 10 mg Q8HR PO 05/28/17 22:00 06/01/17 06:32 (NS Flush) 2 ml UNSCH PRN IV FLUSH 05/28/17 21:30 (NS Flush) 2 ml BID IV FLUSH 05/29/17 09:00 05/31/17 08:47 (Tylenol) 650 mg Q4H PRN PO 05/28/17 22:00 (Zofran Inj) 4 mg Q6H PRN IVP 05/28/17 22:00 (Narcan Inj) 0.4 mg UNSCH PRN IV PUSH 05/28/17 21:30 (Libia-Colace) 1 tab BID PO 05/29/17 09:00 05/29/17 09:43 (Milk Of Magnesia Liq) 30 ml Q12H PRN PO 05/28/17 22:00 (Senokot) 17.2 mg Q12H PRN PO 05/28/17 22:00 (Dulcolax Supp) 10 mg DAILY PRN RECTAL 05/28/17 22:00 (Lactulose Liq) 30 ml DAILY PRN PO 05/28/17 22:00 (Norvasc) 10 mg DAILY PO 05/29/17 09:00 05/31/17 08:47 (Inderal) 10 mg Q8HR PO 05/28/17 22:00 06/01/17 06:32 (Symbicort 160-4.5 Mcg Inh) 1 puff Q12HR INH 05/29/17 09:00 06/01/17 08:35 (Toradol) 10 mg Q6H PRN PO 05/30/17 11:15 06/04/17 11:14 05/31/17 11:32 (Lidoderm 5% Patch.12 Hr) 1 patch DAILY T-DERMAL 05/30/17 13:00 06/01/17 08:36 A/P Assessment and Plan 47-year-old female with a past medical history significant for chronic back pain and hypertension presents to the emergency department for evaluation of weakness. The patient was discharged from [facility] on 05/26/17 where she was treated for pneumonia, hypertension and chronic back pain. She was discharged to a hotel because she is currently homeless. She reports that in the hotel she was unable to care for herself because she was too weak. She states she was unsteady on her feet and "her legs felt like Jell-O." She states she is unable to ambulate with her walker. Unsafe discharge: patient reports she does not have anyone to care for her. -Case management consulted to assist with discharge planning, appreciate assistance -patient improving with PT, able to perform transfers on her own and walking few steps, plan to discharge home to [facility] Chronic back pain: Patient states she is out of her home opiate medication, reviewed records, last dilaudid refill was in Oct 2016, then [place] 15tabs in , then [place] 14tabs in April2017. -Lumbar MRI reviewed, shows slight spondylolisthesis at L4-5 which appears to relate to severe posterior facet disease; small central disc protrusion at L2 -3 and slight left paracentral disc protrusion at T12-L1, neither producing any significant anatomic compromise -Continue baclofen for spasms -Patient requesting different pain medication other than ibuprofen, will give toradol 10mg q6h x5days -Patient strongly encouraged to return to pain management upon discharge -PT consulted, currently recommending rehab, unless she is able to do transfer with walker, then can dc to residential -Case management consulted for d/c planning -Continue daily PT, and consult OT -continue lidoderm patch -overall improving Hypertension -Resumed antihypertensive medications that were started during previous hospitalization -On propranolol 10mg q8h and norvasc 10mg daily -BP well controlled, continue to monitor Cough/URI: suspect viral. CXR images reviewed, no acute findings. No leukocytosis. Low grade fever Tmax 99.8. -robitussin prn -supportive treatment. DVT Prophylaxis: teds/SCDs Discharge Planning Patient is stable for discharge. She has been performing transfers from bed to commode and walking few steps with walker on her own. Case management to assist with discharge planning. Patient likely going home to son. Lea King PA-C Jun 01, 2017 8:40 am
--- NOTE | 2017-06-01 09:19 | RADRPT ---
EXAM DATE/TIME: 06/01/2017 09:07 [place] COMPARISON: CHEST PA & LAT, May 28, 2017, 13:10. CHEST SINGLE AP, May 24, 2017, 18:27. INDICATIONS : Cough MEDICAL HISTORY : Myocardial infarction SURGICAL HISTORY : Fusion, thoracic. Tonsillectomy ENCOUNTER: Initial ACUITY: 1 day PAIN SCORE: 0/10 LOCATION: Bilateral chest FINDINGS: A single AP erect view of the chest was obtained. The study is Midinspiratory and there is mild motio n artifact. No confluent infiltrates or effusions are identified. The left hemidiaphragm remains elev ated. Postsurgical changes again noted in the mid and lower thoracic spine. CONCLUSION: 1. Stable appearance with no definite acute cardiopulmonary disease. 2. Midinspiratory study with stable elevation of right hemidiaphragm and mild motion artifact. Fernando Chirinos MD on June 01, 2017 at 9:15 Board Certified Radiologist. This report was verified electronically.
[2017-06-01 12:03] LABS: BACTERIA, URINE FEW /hpf; BILIRUBIN, URINE NEG (NEG); BLOOD, URINE MOD (NEG); GLUCOSE,URINE NEG (NEG); HYALINE CAST, URINE 2 /lpf (RARE); KETONE, URINE NEG (NEG); MUCUS URINE FEW /lpf (OCC); NITRITE,URINE NEG (NEG); PH, URINE 5.5 (5.0-8.5); SQUAMOUS EPITHELIAL CELL URINE 32 /hpf (0-5); URINE COLOR YELLOW (YELLW/STRAW); URINE LEUKOCYTE ESTERASE LARGE (NEG)
[2017-06-01 12:51] VITALS: BP 114/61; PULSE 106; RESP 18; TEMP 99.1; O2SAT 93
[2017-06-01] MEDS ORDERED: ONDANSETRON ODT 4 MG TAB PO PRN (14:45)
[2017-06-01] MEDS: PANTOPRAZOLE SOD 40 MG DELAYED RELEASE TAB PO SCH (15:05)
[2017-06-01] MEDS: guaiFENesin/DEXTROMETHORPHAN 200 MG/20 MG/10 ML CUP PO PRN ×2 (16:18→21:23)
[2017-06-01 18:04] VITALS: BP 91/52; PULSE 98; RESP 18; TEMP 100; O2SAT 92
[2017-06-01 20:27] VITALS: BP 96/54; PULSE 103; RESP 16; TEMP 98.4; O2SAT 97
[2017-06-01] MEDS ORDERED: ENOXAPARIN SODIUM 40 MG/0.4 ML SYRINGE SQ SCH (21:00)
--- NOTE | 2017-06-02 00:31 | EKG ---
Date Performed: 05/31/2017 Time Performed: 19:19:19 PTAGE: 47 years EKG: SINUS TACHYCARDIA ABNORMAL RHYTHM ECG PREVIOUS TRACING : 05/10/2017 15.20 Since the previous tracing, no significant change noted DOCTOR: Liang Nieves Interpretating Date/Time 06/02/2017 00:29:29
[2017-06-02 01:01] VITALS: BP 95/63; PULSE 105; RESP 16; TEMP 98.9
[2017-06-02 03:38] VITALS: BP 99/54; PULSE 93; RESP 16; TEMP 98.1; O2SAT 91
[2017-06-02] MEDS: BACLOFEN 10 MG TAB PO SCH ×2 (06:14→11:09)
[2017-06-02] MEDS: guaiFENesin/DEXTROMETHORPHAN 200 MG/20 MG/10 ML CUP PO PRN (06:14)
[2017-06-02] MEDS: PROPRANOLOL HCL 10 MG TAB PO SCH (06:14)
[2017-06-02] MEDS ORDERED: KETOROLAC TROMETHAMINE 10 MG TAB PO ONE (08:30)
[2017-06-02] MEDS ORDERED: CEFU1TAB18 PO (08:30)
[2017-06-02] MEDS: LIDOCAINE HCL 5% PATCH T-DERMAL SCH (08:45)
[2017-06-02] MEDS: PANTOPRAZOLE SOD 40 MG DELAYED RELEASE TAB PO SCH (08:46)
[2017-06-02] MEDS: DOCUSATE SODIUM 50 MG/SENNA 8.6 MG TAB PO SCH (08:46)
[2017-06-02] MEDS ORDERED: CEFUROXIME AXETIL 250 MG TAB PO SCH (09:00)
--- NOTE | 2017-06-02 09:18 | HHI.PR ---
Subjective Remarks Follow up for back pain. The patient reports back pain improving. She is able to do transfer to bedside commode and ambulate few steps in the room with her walker on her own. She reports nonproductive cough, feels she may have a cold. Denies any urinary complaints. She has made arrangements for discharge today. Objective Vitals Vital Signs Date Time Temp Pulse Resp B/P (MAP) Pulse Ox O2 Delivery O2 Flow Rate FiO2 06/02/17 03:38 98.1 93 16 99/54 (69) 91 06/02/17 01:01 98.9 105 16 95/63 (74) 06/01/17 20:27 98.4 103 16 96/54 (68) 97 06/01/17 18:04 100.0 98 18 91/52 (65) 92 06/01/17 12:51 99.1 106 18 114/61 (78) 93 I/O 06/01/17 06/01/17 06/01/17 06/02/17 06/02/17 06/02/17 07:00 15:00 23:00 07:00 15:00 23:00 Intake Total 240 ml Balance 240 ml Intake Oral 240 ml # Voids 1 1 Result Diagram: 05/30/17 0818 05/29/17 1154 Imaging Last Impressions Chest X-Ray 06/01/17 0000 Signed Impressions: Service Date/Time: Thursday, June 01, 2017 09:07 - CONCLUSION: 1. Stable appearance with no definite acute cardiopulmonary disease. 2. Midinspiratory study with stable elevation of right hemidiaphragm and mild motion artifact. Fernando Chirinos MD Lumbar Spine MRI 05/28/17 0000 Signed Impressions: Service Date/Time: Sunday, May 28, 2017 17:33 - CONCLUSION: Slight spondylolisthesis at L4-5 which appears to relate to severe posterior facet disease. Small central disc protrusion at L2-3 and slight left paracentral disc protrusion at T12-L1, neither producing any significant anatomic compromise. See above discussion. Sunday Nascimento MD Lumbar Spine CT 05/28/17 0000 Signed Impressions: Service Date/Time: Sunday, May 28, 2017 14:07 - CONCLUSION: 1. Multilevel degenerative spondylosis of the lumbar spine most prominently at L4-S1. There is very severe facet arthropathy at L4-5. There is at least mild to moderate stenosis of the central canal at these levels with mild neural foraminal narrowing at L4-5 and moderate neural foraminal narrowing at L5-S1. Patient would benefit from MRI exam or CT myelography for further evaluation. Júnior Pearl MD Objective Remarks GENERAL: Well-nourished, well-developed middle aged female patient in [facility]. SKIN: Warm and dry. No rash. HEENT: Normocephalic. Atraumatic.Pupils equal and round. Mucous membranes pink and moist. NECK: Supple. Trachea midline. CARDIOVASCULAR: Regular rate and rhythm. No murmur appreciated. RESPIRATORY: No accessory muscle use. Clear to auscultation. Breath sounds equal bilaterally. GASTROINTESTINAL: Abdomen soft, non-tender, nondistended. Normoactive bowel sounds x4. MUSCULOSKELETAL: No obvious deformities. Extremities without clubbing, cyanosis , or edema. NEUROLOGICAL: Awake and alert. No obvious cranial nerve deficits. Motor grossly within normal limits. 5/5 muscle strength in bilateral upper and lower extremities. Normal speech. PSYCHIATRIC: Appropriate mood and affect; insight and judgment normal. A/P Assessment and Plan 47-year-old female with a past medical history significant for chronic back pain and hypertension presents to the emergency department for evaluation of weakness. The patient was discharged from [facility] on 05/26/17 where she was treated for pneumonia, hypertension and chronic back pain. She was discharged to a hotel because she is currently homeless. She reports that in the hotel she was unable to care for herself because she was too weak. She states she was unsteady on her feet and "her legs felt like Jell-O." She states she is unable to ambulate with her walker. Unsafe discharge: patient reports she does not have anyone to care for her. -Case management consulted to assist with discharge planning, appreciate assistance -patient improving with PT, able to perform transfers on her own and walking few steps with walker, plan to discharge home to son Chronic back pain: Patient states she is out of her home opiate medication, reviewed records, last dilaudid refill was in Oct 2016, then [place] 15tabs in , then [place] 14tabs in April2017. -Lumbar MRI reviewed, shows slight spondylolisthesis at L4-5 which appears to relate to severe posterior facet disease; small central disc protrusion at L2 -3 and slight left paracentral disc protrusion at T12-L1, neither producing any significant anatomic compromise -Continue baclofen for spasms -Patient requesting different pain medication other than ibuprofen, will give toradol 10mg q6h x5days -Patient strongly encouraged to return to pain management upon discharge -PT consulted, initially recommending rehab, unless she is able to do transfer with walker, [facility] -Case management consulted for d/c planning -Continue daily PT, and consult OT -continue lidoderm patch -overall improving, patient able to perform transfer in her room, getting up on her own to bedside commode and ambulating room with walker Hypertension -Resumed antihypertensive medications that were started during previous hospitalization -On propranolol 10mg q8h and norvasc 10mg daily -BP well controlled, continue to monitor Cough/URI: suspect viral. CXR images reviewed, no acute findings. No leukocytosis. Low grade fever Tmax 99.8. -robitussin prn -supportive treatment. Abnormal UA: patient with no urinary complaints however with low grade fevers. Urinalysis abnormal, however does have 32 squamous epithelial cells. -give rx for ceftin 250mg bid x3days -follow up urine culture DVT Prophylaxis: teds/SCDs Discharge Planning Patient is stable for discharge. She has been performing transfers from bed to commode and walking few steps with walker on her own. Case management to assist with discharge planning. Patient likely going home to son. Lea King PA-C Jun 02, 2017 9:18 am
[2017-06-02 09:22] VITALS: BP 91/51; PULSE 75; RESP 16; TEMP 98.4; O2SAT 92
[2017-06-02] MEDS: BUDESONIDE-FORMOTEROL 160/4.5 MCG INHALER INH SCH (11:00)
--- NOTE | 2017-06-02 12:16 | HHI.DS ---
Discharge Summary Admission Date May 28, 2017 at 7:23 pm Discharge Date: Jun 02, 2017 Admitting Diagnosis Intractable back pain, increased debilitation, chronic back pain (1) Back pain ICD Code: M54.9 - Dorsalgia, unspecified Diagnosis: Principal (2) Gait instability ICD Code: R26.81 - Unsteadiness on feet Diagnosis: Secondary Procedures None. Brief History - From Admission 47-year-old female with a past medical history significant for chronic back pain and hypertension presents to the emergency department for evaluation of weakness. The patient was discharged from [facility] on 05/26/17 where she was treated for pneumonia, hypertension and chronic back pain. She was discharged to a hotel because she is currently homeless. She reports that in the hotel she was unable to care for herself because she was too weak. She states she was unsteady on her feet and "her legs felt like Jell-O." She states she is unable to ambulate with her walker. She was discharged with antihypertensive medication when she was not taking because she thought maybe there was a mistake with her discharge medications. She denies any chest pain or shortness of breath. No nausea/vomiting/diarrhea/abdominal pain. No lateralizing signs/symptoms. No fevers/chills. The patient reports severe back pain, she states this is worse than her baseline. CBC/BMP: 05/30/17 0818 05/29/17 1154 Significant Findings Laboratory Tests Test 05/31/17 20:13 06/01/17 11:00 Troponin I LESS THAN 0.02 NG/ML Urine Turbidity HAZY (CLEAR) Urine Protein 30 mg/dL (NEG-TRACE) Urine Occult Blood MOD (NEG) Urine Leukocyte Esterase LARGE (NEG) Urine RBC 9 /hpf (0-3) Urine WBC 15 /hpf (0-5) Urine Bacteria FEW /hpf (NONE) Urine Mucus FEW /lpf (OCC) Imaging Last Impressions Chest X-Ray 06/01/17 0000 Signed Impressions: Service Date/Time: Thursday, June 01, 2017 09:07 - CONCLUSION: 1. Stable appearance with no definite acute cardiopulmonary disease. 2. Midinspiratory study with stable elevation of right hemidiaphragm and mild motion artifact. Fernando Chirinos MD Lumbar Spine MRI 05/28/17 0000 Signed Impressions: Service Date/Time: Sunday, May 28, 2017 17:33 - CONCLUSION: Slight spondylolisthesis at L4-5 which appears to relate to severe posterior facet disease. Small central disc protrusion at L2-3 and slight left paracentral disc protrusion at T12-L1, neither producing any significant anatomic compromise. See above discussion. Sunday Nascimento MD Lumbar Spine CT 05/28/17 0000 Signed Impressions: Service Date/Time: Sunday, May 28, 2017 14:07 - CONCLUSION: 1. Multilevel degenerative spondylosis of the lumbar spine most prominently at L4-S1. There is very severe facet arthropathy at L4-5. There is at least mild to moderate stenosis of the central canal at these levels with mild neural foraminal narrowing at L4-5 and moderate neural foraminal narrowing at L5-S1. Patient would benefit from MRI exam or CT myelography for further evaluation. Júnior Pearl MD PE at Discharge GENERAL: Well-nourished, well-developed middle aged female patient in [facility]. SKIN: Warm and dry. No rash. HEENT: Normocephalic. Atraumatic.Pupils equal and round. Mucous membranes pink and moist. NECK: Supple. Trachea midline. CARDIOVASCULAR: Regular rate and rhythm. No murmur appreciated. RESPIRATORY: No accessory muscle use. Clear to auscultation. Breath sounds equal bilaterally. GASTROINTESTINAL: Abdomen soft, non-tender, nondistended. Normoactive bowel sounds x4. MUSCULOSKELETAL: No obvious deformities. Extremities without clubbing, cyanosis , or edema. NEUROLOGICAL: Awake and alert. No obvious cranial nerve deficits. Motor grossly within normal limits. 5/5 muscle strength in bilateral upper and lower extremities. Normal speech. PSYCHIATRIC: Appropriate mood and affect; insight and judgment normal. Hospital Course 47-year-old female with a past medical history significant for chronic back pain and hypertension presents to the emergency department for evaluation of weakness. The patient was discharged from [facility] on 05/26/17 where she was treated for pneumonia, hypertension and chronic back pain. She was discharged to a hotel because she is currently homeless. She reports that in the hotel she was unable to care for herself because she was too weak. She states she was unsteady on her feet and "her legs felt like Jell-O." She states she is unable to ambulate with her walker. Unsafe discharge: patient reports she does not have anyone to care for her. Case management consulted to assist with discharge planning, patient homeless, difficult discharge planning. Patient improved with PT, able to perform transfers on her own and walking few steps with walker, plan to discharge home to son and family friend. Chronic back pain: Patient states she is out of her home opiate medication, reviewed records, last dilaudid refill was in Oct 2016, then [employer] 15tabs in , then [employer] 14tabs in April2017. Lumbar CT initially concerned for stenosis however Lumbar MRI performed, shows slight spondylolisthesis at L4-5 which appears to relate to severe posterior facet disease; small central disc protrusion at L2-3 and slight left paracentral disc protrusion at T12-L1, neither producing any significant anatomic compromise. Given Toradol po, baclofen prn spasms, and lidoderm patch. No narcotic given. PT consulted, initially recommending rehab, unless she is able to do transfer with walker, then can dc to snf. Patient improved throughout admission, able to perform transfer in her room, getting up on her own to bedside commode and ambulating room with walker. Patient strongly encouraged to return to pain management upon discharge. Stable for discharge. Hypertension: Resumed antihypertensive medications that were started during previous hospitalization. On propranolol 10mg q8h and norvasc 10mg daily. BP well controlled. Cough/URI: suspect viral. CXR images reviewed, no acute findings. No leukocytosis. Low grade fever Tmax 99.8. Robitussin prn cough. Supportive treatment. Abnormal UA: patient with no urinary complaints however with low grade fevers. Urinalysis abnormal, however does have 32 squamous epithelial cells, likely contaminated. Given rx for ceftin 250mg bid x3days. Follow up urine culture after discharge. I spent 35 minutes [id number] with the patient or on the moreira discussing the patient's disposition, prognosis, and plan of care with her caregivers. Over half the time spent was devoted to counseling the patient regarding placement in coordinating care with caregivers and case management. Pt Condition on Discharge: Stable Discharge Disposition: Discharge Home Discharge Time: > 30 minutes Discharge Instructions DIET: Follow Instructions for: As Tolerated, No Restrictions Activities you can perform: Regular-No Restrictions Follow up Referrals: Pain Management - 1 Week PCP Follow-up - 1 Week with Roberta Joe New Medications: Commode Bedside (Commode Bedside) 1 Mis Mis EA .XX DIRECTED, #1 0 Refills Wheelchair (Wheelchair) 1 Mis Mis EA .XX DIRECTED, #1 0 Refills Baclofen (Baclofen) 10 Mg Tab 10 MG PO Q8HR PRN for spasms, #21 TAB Cefuroxime (Ceftin) 250 Mg Tab 250 MG PO Q12HR for UTI, #6 TAB Ketorolac (Ketorolac) 10 Mg Tab 10 MG PO Q6H PRN for pain scale 6-10 for 3 Days, #12 TAB Continued Medications: Amlodipine (Norvasc) 10 Mg Tab 10 MG PO DAILY for Blood Pressure Management, #30 TAB Propranolol (Propranolol) 10 Mg Tab 10 MG PO Q8HR for Anxiety, BP and HR management, #90 TAB Walker with Front Wheels (Walker with Front Wheels) 1 Mis Mis EA .XX DIRECTED, #1 0 Refills [Budeson-Formot 160-4.5 Mcg Inh] () 60 PUFF AERO 1 PUFF INH Q12HR for COPD, #1 INHALER Discontinued Medications: Levofloxacin (Levaquin) 500 Mg Tablet 500 MG PO DAILY for Infection, #6 TAB Methocarbamol (Methocarbamol) 500 Mg Tab 500 MG PO TID for Muscle Spasm, #90 TAB 0 Refills Lea King PA-C Jun 02, 2017 12:16 pm
== END 2017-06-02 11:45 | disposition home or self-care (01) ==
LOC: NEPD 09:55 → NEDA 19:23 → NEDH 23:52 → NEPGCP 05-29 12:39
PROVIDERS: ADMIT Internal Medicine; ATTEND Internal Medicine
DX: M54.6 Pain in thoracic spine (principal); M54.5 Low back pain; G89.29 Other chronic pain; J06.9 Acute upper respiratory infection, unspecified; I10 Essential (primary) hypertension; R00.0 Tachycardia, unspecified; R94.31 Abnormal electrocardiogram [ECG] [EKG]; I25.2 Old myocardial infarction; J44.9 Chronic obstructive pulmonary disease, unspecified; M43.16 Spondylolisthesis, lumbar region; M51.26 Other intervertebral disc displacement, lumbar region; M51.25 Other intervertebral disc displacement, thoracolumbar region; M47.897 Other spondylosis, lumbosacral region; F41.9 Anxiety disorder, unspecified; F32.9 Major depressive disorder, single episode, unspecified; Z59.0 Homelessness; Z79.899 Other long term (current) drug therapy; Z86.73 Personal history of transient ischemic attack (TIA), and cerebral infarction without residual deficits
CPT/HCPCS: 71045; 71046; 72131; 72148; 80048; 80053; 80307; 81001; 84484; 85025; 87086; 93005; 97162; 97167; 97530; 99285; G0378; G8987; G8988